=== PATIENT | male | born 1940 | race Caucasian/White ===

== ENCOUNTER 2017-05-22 10:47 | Day surgery (SDC) | payer OTHER ==
[2017-05-22] MEDS ORDERED: fentaNYL 100 MCG/2 ML INJ IVP ONE (10:56)
[2017-05-22] MEDS ORDERED: MIDAZOLAM 2 MG/2 ML VIAL IVP ONE (10:56)
[2017-05-22] MEDS ORDERED: NS 500 ML IV ONE (10:56)
[2017-05-22] MEDS ORDERED: BENZOCAINE UNIT DOSE SPRAY HURRICAINE MM ONE (10:56)
[2017-05-22] MEDS ORDERED: PROPOFOL 200 MG/20 ML VIAL IVP ONE (10:56)
--- NOTE | 2017-05-22 11:14 | CPEKG ---
Heart Rate: 84 RR Interval: 714 QRSD Interval: 92 QT Interval: 396 QTC Interval: 469 QRS [place]: 29 T Wave [place]: 5 EKG Severity - BORDERLINE ECG - EKG Impression: ATRIAL FIBRILLATION EKG Impression: LOW VOLTAGE IN FRONTAL LEADS EKG Impression: CONSIDER POSTERIOR INFARCT Electronically Signed By: Jorge Azar 22-May-2017 12:43:45
[2017-05-22 11:38] LABS: INR 2.09 (0.83-1.16); PROTIME(PATIENT) 23.6 SEC (12.0-15.0)
[2017-05-22 11:39] LABS: APTT 38.9 SEC (23.0-38.0)
[2017-05-22 11:46] LABS: ANION GAP 12 mEq/L (8-16); CALCIUM 9.5 mg/dL (8.5-10.4); CARBON DIOXIDE 25 mEq/l (22-31); CHLORIDE 103 mEq/L (97-110); CREATININE 1.1 mg/dL (0.7-1.3); GLOMERULAR FILTRATION RATE > 60; GLUCOSE 110 mg/dL (70-100); MAGNESIUM 1.8 mg/dL (1.6-2.3); POTASSIUM 4.7 mEq/L (3.5-5.2); SODIUM 140 mEq/L (134-144)
--- NOTE | 2017-05-22 13:17 | PDANEPAE ---
ANE History of Present Illness 77 yo for cv for Afib ANE Past Medical History - Cardiovascular History Hx Hypertension: Yes Hx Arrhythmias: No Hx Chest Pain: No Hx Coronary Artery / Peripheral Vascular Disease: Yes Hx CHF / Valvular Disease: No Hx Palpitations: No - Pulmonary History Hx Asthma/Reactive Airway Disease: No Hx Recent Upper Respiratory Infection: No Hx Oxygen in Use at Home: No Hx Sleep Apnea: No - Endocrine History Hx Diabetes: Yes ANE Review of Systems - Exercise capacity METS (RN): 3 METS ANE Patient History - Allergies Allergies/Adverse Reactions: No Known Allergies Allergy (Verified 05/19/16 18:49) - Home Medications Home medications: home medication list seen and reviewed Home Medications: Atorvastatin Calcium [Lipitor 10 mg (*)] 10 mg PO DAILY20 05/19/16 [Last Taken 07/16/16] Rivaroxaban [Xarelto] 20 mg PO DAILY20 05/19/16 [Last Taken 07/14/16] Timolol 0.5% [TIMOPTIC 0.5% (*)] 1 drops EACHEYE DAILY 05/19/16 [Last Taken ] metFORMIN HCL [Metformin HCl ER] 500 mg PO DAILY20 05/19/16 [Last Taken 07/16/16 ] Metoprolol Succinate Xr [Toprol Xl 25 mg (*)] 25 mg PO DAILY 07/17/16 [Last Taken 07/10/16] Omeprazole [Prilosec 20 mg] 20 mg PO DAILY 07/17/16 [Last Taken 07/16/16] Propafenone HCl Sr [Rythmol Sr 225mg (*)] 225 mg PO Q12 07/17/16 [Last Taken ] - Smoking Hx Smoking Status: Former smoker ANE Labs/Vital Signs - Labs Result Diagrams: 05/22/17 11:15 - Vital Signs Height: 6 ft 0.05 in Weight: 90.7 kg ANE Physical Exam - Airway Neck exam: FROM Mallampati Score: Class 3 Mouth exam: normal dental/mouth exam - Pulmonary Pulmonary: no respiratory distress - Cardiovascular Cardiovascular: regular rate and rhythym - ASA Status ASA Status: III ANE Anesthesia Plan Anesthesia Plan: MAC (IVGA)
[2017-05-22] MEDS ORDERED: PROPOFOL 200 MG/20 ML VIAL ONE (13:54)
--- NOTE | 2017-05-22 13:55 | PDGENHP ---
History & Physical Chief Complaint: AF WITH SYMPTOMS OF FATIGUE History of Present Illness: AFIB Pertinent Past, Social, Family History: NONE FOR THIS PROCEDURE. SP PV ISOLATION FOR AFIB Relevant Physical Exam: S1S2 IRREG. CTA. A/O X 3 Cardiorespiratory Assessment: Symptomatic AFIB. For KAE guided DCCV
--- NOTE | 2017-05-22 14:16 | PDTEE1 ---
KAE Cardioversion Procedure Procedure: Electrical Cardioversion, Transesophageal Echo Indications: Atrial Fibrillation, Cardiomyopathy Consent: Signed and in Chart Anticoagulation: Xarelto Procedural Details: Pads were placed in anterior-posterior position. KAE probe was advanced and standard images obtained. There is no evidence of left atrial or left atrial appendage thrombus. Synchronized cardioversion attempt #1: 200J Synchronized cardioversion attempt #2: 200J Results: Normal sinus rhythm Conclusions: Successful KAE Cardioversion Patient Problems: Problems Problem Status Onset Atrial fibrillation Acute Persistent atrial fibrillation with rapid ventricular response Acute
--- NOTE | 2017-05-22 14:39 | CPEKG ---
Heart Rate: 41 RR Interval: 1463 P-R Interval: 224 QRSD Interval: 100 QT Interval: 496 QTC Interval: 410 [place]: -27 QRS [place]: 39 T Wave [place]: 12 EKG Severity - ABNORMAL ECG - EKG Impression: SINUS BRADYCARDIA EKG Impression: LOW VOLTAGE IN FRONTAL LEADS EKG Impression: PROBABLE POSTERIOR INFARCT Electronically Signed By: Jorge Azar 22-May-2017 14:55:15
--- NOTE | 2017-05-22 14:43 | POSTANESTH ---
Post Anesthetic Evaluation Cardiovascular Status: Normal, Stable Respiratory Status: Normal, Stable Level of Consciousness/Mental Status: Can Participate in Eval Nausea/Vomiting Control: Adequate, Prn Tx Ordered Complications Possibly Related to Anesthesia: None Noted
== END 2017-05-22 15:31 | disposition home or self-care (01) ==
LOC: FCATH 10:47
PROVIDERS: ATTEND Internal Medicine Cardiovascular Disease
PROC: 5A2204Z Restoration of Cardiac Rhythm, Single (ICD-10-PCS; principal; 2017-05-22)
PROC: B245ZZ4 Ultrasonography of Left Heart, Transesophageal (ICD-10-PCS; principal; 2017-05-22)
CPT/HCPCS: J2704

== ENCOUNTER 2017-07-02 10:30 | Day surgery (SDC) | payer OTHER ==
[2017-07-02] MEDS ORDERED: MIDAZOLAM 2 MG/2 ML VIAL IVP ONE (10:34)
[2017-07-02] MEDS ORDERED: NS 500 ML IV ONE (10:34)
[2017-07-02] MEDS ORDERED: ATROPINE SULFATE 1 MG/10 ML SYR IVP ONE (10:34)
[2017-07-02] MEDS ORDERED: fentaNYL 100 MCG/2 ML INJ IVP ONE (10:34)
[2017-07-02] MEDS ORDERED: BENZOCAINE UNIT DOSE SPRAY HURRICAINE MM ONE (10:34)
--- NOTE | 2017-07-02 10:49 | CPEKG ---
Heart Rate: 79 RR Interval: 759 QRSD Interval: 96 QT Interval: 392 QTC Interval: 450 QRS [place]: 42 T Wave [place]: -13 EKG Severity - ABNORMAL ECG - EKG Impression: ATRIAL FIBRILLATION EKG Impression: LOW VOLTAGE IN FRONTAL LEADS EKG Impression: PROBABLE POSTERIOR INFARCT EKG Impression: BORDERLINE T ABNORMALITIES, INFERIOR LEADS Electronically Signed By: Eduardo Bedoya 02-Jul-2017 17:55:58
[2017-07-02] MEDS ORDERED: PROPOFOL 200 MG/20 ML VIAL ONE (11:28)
[2017-07-02] MEDS ORDERED: LIDOCAINE 2% 5 ML SDV ONE (11:28)
[2017-07-02 11:29] LABS: ANION GAP 10 mEq/L (8-16); CALCIUM 9.4 mg/dL (8.5-10.4); CARBON DIOXIDE 26 mEq/l (22-31); CHLORIDE 103 mEq/L (97-110); CREATININE 1.2 mg/dL (0.7-1.3); GLOMERULAR FILTRATION RATE 58; GLUCOSE 116 mg/dL (70-100); MAGNESIUM 1.7 mg/dL (1.6-2.3); POTASSIUM 4.2 mEq/L (3.5-5.2); SODIUM 139 mEq/L (134-144)
[2017-07-02 11:33] LABS: INR 2.25 (0.83-1.16); PROTIME(PATIENT) 25.1 SEC (12.0-15.0)
--- NOTE | 2017-07-02 11:34 | PDANEPAE ---
ANE History of Present Illness 77 yo male with AF. ANE Past Medical History - Cardiovascular History Hx Hypertension: Yes Hx Arrhythmias: No Hx Chest Pain: No Hx Coronary Artery / Peripheral Vascular Disease: Yes Hx CHF / Valvular Disease: No Hx Palpitations: No - Pulmonary History Hx COPD: No Hx Asthma/Reactive Airway Disease: No Hx Recent Upper Respiratory Infection: No Hx Oxygen in Use at Home: No Hx Sleep Apnea: No - Endocrine History Hx Diabetes: Yes - GI History GERD: no ANE Review of Systems Review of Systems: No URI/fever x2 weeks - Systems Cardiac: Reports: palpitations Respiratory: Reports: shortness of breath ANE Patient History - Allergies Allergies/Adverse Reactions: No Known Allergies Allergy (Verified 05/19/16 18:49) - Home Medications Home medications: home medication list seen and reviewed Home Medications: Atorvastatin Calcium [Lipitor 10 mg (*)] 10 mg PO DAILY20 05/19/16 [Last Taken 07/16/16] Rivaroxaban [Xarelto] 20 mg PO DAILY20 05/19/16 [Last Taken 07/14/16] Timolol 0.5% [TIMOPTIC 0.5% (*)] 1 drops EACHEYE DAILY 05/19/16 [Last Taken ] metFORMIN HCL [Metformin HCl ER] 500 mg PO DAILY20 05/19/16 [Last Taken 07/16/16 ] Propafenone HCl Sr [Rythmol Sr 225mg (*)] 225 mg PO Q12 07/17/16 [Last Taken ] Ascorbic Acid [Vitamin C 500 mg (*)] 500 mg PO BID 07/01/17 [Last Taken Unknown] Cholecalciferol Vit D3 [Vitamin D3 2000 units tab (OTC)] 2,000 units PO DAILY [Last Taken Unknown] Metoprolol Succinate Xr [Toprol Xl 50 mg (*)] 50 mg PO DAILY@199907/01/17 [ Last Taken Unknown] - NPO status NPO Status: no food or drink >8 hours - Anes Hx Anes Hx: no prior problems - Smoking Hx Smoking Status: Former smoker ANE Labs/Vital Signs - Labs Result Diagrams: 07/02/17 10:55 - Vital Signs Vital Signs: reviewed preoperatively; see RN documention for details Height: 182.88 cm Weight: 89.358 kg ANE Physical Exam - Airway Neck exam: FROM Mallampati Score: Class 2 Mouth exam: normal dental/mouth exam - Pulmonary Pulmonary: clear to auscultation - Cardiovascular Cardiovascular: irregularly irregular - ASA Status ASA Status: III ANE Anesthesia Plan Anesthesia Plan: GA with mask Total IV Anesthesia: Yes
[2017-07-02 11:36] LABS: APTT 38.1 SEC (23.0-38.0)
--- NOTE | 2017-07-02 11:40 | PDHPUP ---
History & Physical Update H&P update statement: This history and physical update is based on an assessment of the patient which was completed after admission or registration (within 24 hours), but prior to the surgery/procedure. H&P update: H&P reviewed & patient examined, no change in patient's condition since H&P completed
--- NOTE | 2017-07-02 11:51 | PDCARD ---
Cardioversion Procedure Procedure: electrical cardioversion Indications: atrial fibrillation Consent: signed and in chart Anticoagulation: xarelto Procedural Details: Pads were placed in anterior-posterior position. Synchronized cardioversion attempt #1: 200J Results: normal sinus rhythm Conclusions: successful cardioversion Patient Problems: Problems Problem Status Onset Atrial fibrillation Acute Persistent atrial fibrillation with rapid ventricular response Acute
--- NOTE | 2017-07-02 11:53 | CPEKG ---
Heart Rate: 47 RR Interval: 1277 P-R Interval: 228 QRSD Interval: 98 QT Interval: 456 QTC Interval: 404 P [place]: -28 QRS [place]: 26 T Wave [place]: -16 EKG Severity - ABNORMAL ECG - EKG Impression: SINUS BRADYCARDIA EKG Impression: PROBABLE POSTERIOR INFARCT EKG Impression: BORDERLINE T ABNORMALITIES, INFERIOR LEADS Electronically Signed By: Eduardo Bedoya 02-Jul-2017 17:55:53
== END 2017-07-02 13:29 | disposition home or self-care (01) ==
LOC: FCATH 10:30
PROVIDERS: ATTEND Internal Medicine Cardiovascular Disease
PROC: 5A2204Z Restoration of Cardiac Rhythm, Single (ICD-10-PCS; principal; 2017-07-02)
DX: I48.0 Paroxysmal atrial fibrillation (principal); I34.0 Nonrheumatic mitral (valve) insufficiency; I10 Essential (primary) hypertension; E11.9 Type 2 diabetes mellitus without complications; Z87.891 Personal history of nicotine dependence
CPT/HCPCS: J2704

== ENCOUNTER → 2017-07-17 | Outpatient (CLI) | payer OTHER | LOC: CIMAGING 11:39 | PROVIDERS: ATTEND Internal Medicine Pulmonary Disease | DX: R91.1 Solitary pulmonary nodule (principal); M48.54XA Collapsed vertebra, not elsewhere classified, thoracic region, initial encounter for fracture | CPT/HCPCS: 71250-PO ==

== ENCOUNTER 2017-10-02 08:46 | Inpatient (IN) | payer OTHER ==
[2017-10-02] MEDS ORDERED: DIAZEPAM 5 MG TAB PO ONE (08:50)
[2017-10-02] MEDS ORDERED: NS 1,000 ML IV ONE (08:50)
[2017-10-02] MEDS ORDERED: diphenhydrAMINE 25 MG CAP PO ONE ×2 (08:50→09:57)
[2017-10-02] MEDS ORDERED: FAMOTIDINE 20 MG TAB PO ONE (08:50)
[2017-10-02] MEDS ORDERED: ASPIRIN EC 325 MG TAB PO ONE (08:50)
--- NOTE | 2017-10-02 09:10 | CPEKG ---
Heart Rate: 95 RR Interval: 632 QRSD Interval: 86 QT Interval: 372 QTC Interval: 468 QRS [place]: 46 T Wave [place]: 8 EKG Severity - ABNORMAL ECG - EKG Impression: ATRIAL FIBRILLATION EKG Impression: ATRIAL FIBRILLATION IS NEW IN COMPARISON TO PRIOR ECG Electronically Signed By: Omi Kothari 02-Oct-2017 14:35:34
[2017-10-02 09:30] LABS: PLATELET COUNT 320 10^3/uL (150-400)
[2017-10-02 09:40] LABS: INR 1.05 (0.83-1.16); PROTIME(PATIENT) 13.9 SEC (12.0-15.0)
[2017-10-02] MEDS ORDERED: DIAZEPAM 5 MG TAB ONE (09:57)
[2017-10-02] MEDS ORDERED: FAMOTIDINE 20 MG TAB ONE (09:57)
[2017-10-02] MEDS ORDERED: LIDOCAINE 1% 300 MG/30 ML SDV ONE (10:19)
[2017-10-02] MEDS ORDERED: fentaNYL 100 MCG/2 ML INJ ONE (10:19)
[2017-10-02] MEDS ORDERED: MIDAZOLAM 2 MG/2 ML VIAL ONE (10:19)
[2017-10-02] MEDS ORDERED: IOPAMIDOL (ISOVUE-370) 150 ML BTL IV ONE (10:20)
[2017-10-02] MEDS ORDERED: VERAPAMIL 5 MG/2 ML VIAL ONE (10:43)
[2017-10-02] MEDS ORDERED: HEPARIN 10,000 UNIT/10 ML MDV (1,000 UNIT/ML) ONE (10:43)
--- NOTE | 2017-10-02 10:43 | PDPROPOC ---
Sedation Plan of Care Sedation Plan of Care: vital signs stable, mental status noted, patient educated of risks, benefits, alternatives, patient can tolerate sedation ASA Classification: ASA 3 Planned drugs: fentanyl, midazolam, other (etomidate) Mallampati Score: Class 3 Mallampati Reference Image: Patient passed 3-3-2 rule?: Yes
--- NOTE | 2017-10-02 10:45 | PDHPUP ---
History & Physical Update H&P update statement: This history and physical update is based on an assessment of the patient which was completed after admission or registration (within 24 hours), but prior to the surgery/procedure. H&P update: H&P reviewed & patient examined, no change in patient's condition since H&P completed (patient needs R and left cath prior to MV surgery and [place] Maze IV)
--- NOTE | 2017-10-02 11:40 | PDDXCAT ---
Diagnostic Cath Note - . Date: 10/02/17 [employer] Teacher: Monica Indication: other (Diagnostic cath for worsening MR, patient has planned MV surgery tomorrow with [place] Maze IV) - Procedure Access: right wrist Procedure: left heart catheterization, right heart catheterization - Materials Left Heart Cath size: 5F Left Heart Cath materials: standard multipack (JL4, JR4, pigtail) Right Heart Cath size: 5F Right Heart Cath materials: PWP catheter - Findings-Left Heart Catheterization LM: LM is 4 mm in size relativeley diffuse disease, calcification on flouroscopy consistent with atherosclerosis. It is non-flow limiting. It bifurcates into an LAD and small vestigial circumflex. 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 LAD: It is 3mm in size proximally and gives rise to 2 important diagonal blood vessels. There are weak left to left collaterals to a high lateral branch which must be proximally occluded. The same findings were identified on cath 12/02/15. This appears unchanged. The LAD diagonal system distally is quite small. 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 RCA: RCA is dominant. It is 3.5mm in size. 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 DEE III flow is present. No flow limiting obstruction is identified. EDP: 17mmHg. LVEF: 40% with severe mitral regurgitation. Wall motion: No wall motion abnormalites. - Findings-Right Heart Catheterization RA: Pressure: 13/16 mean: 13mmHg RV: Pressure 51/7. End diastolic pressure is 10 mmHg. PA: PA: 72% saturation PAOP: 20mmHg with large V waves consistent with severe MR. AO: 98% saturation CO: 5.5 L/min CI: 2.6 L/min/m2 Complications: None. Estimated blood loss: <50ml Closure method: TR Band Assessment: RCA is dominant. It is 3.5mm in size. 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 DEE III flow is present. No flow limiting obstruction is identified. There are weak left to left collaterals to a high lateral branch which must be proximally occluded. The same findings were identified on cath 12/02/15. This appears unchanged. There are no vessels amenable to coronary bypass. The LV function has declined and mitral regurgitation has greatly increased from prior cath 11/2015. Plan: The patient is scheduled to have mitral valve repair versus replacement and a [place] Maze IV procedure with left atrial appendage ligation tomorrow by Dr. Chen. Intervention: None. Patient Problems: Problems Problem Status Onset Atrial fibrillation Acute Persistent atrial fibrillation with rapid ventricular response Acute
[2017-10-02] MEDS ORDERED: ONDANSETRON 4 MG/2 ML VIAL IVP PRN (12:08)
[2017-10-02] MEDS ORDERED: ATROPINE SULFATE 1 MG/10 ML SYR IVP PRN (12:08)
[2017-10-02] MEDS ORDERED: OXYCODONE/APAP 5/325 TAB PO PRN (12:08)
[2017-10-02] MEDS ORDERED: HYDROCODONE/APAP 5/325 TAB PO PRN (12:08)
[2017-10-02] MEDS ORDERED: NITROGLYCERIN 0.4 MG BTL SL PRN (12:08)
--- NOTE | 2017-10-02 13:49 | PDGENHP ---
History and Physical - Chief Complaint symptomatic MR, secondary TR, LSPAF - History of Present Illness 77M with known severe MR, secondary TR, and LSPAF admitted in advance of open- heart surgery for risk stratification. Pt is s/p LHC with Dr. Anderson today which revealed non-obstructive CAD. Pt states he continues to experience exertional limitations with associated SOB and is often aware of chest palpitations. He states he has spinal osteoarthritis which also limites his mobility. He denies CP or LE edema. History Information - Allergies/Home Medication List Allergies/Adverse Reactions: No Known Allergies Allergy (Verified 05/19/16 18:49) Home Medications: Atorvastatin Calcium [Lipitor 10 mg (*)] 10 mg PO DAILY18 05/19/16 [Last Taken 10/01/17 21:00] Rivaroxaban [Xarelto] 20 mg PO DAILY18 05/19/16 [Last Taken 09/29/17] Timolol 0.5% [TIMOPTIC 0.5% (*)] 1 drops EACHEYE DAILY 05/19/16 [Last Taken 06/11] Metoprolol Succinate Xr [Toprol Xl 50 mg (*)] 50 mg PO DAILY18 07/01/17 [Last Taken 10/01/17 21:00] Cholecalciferol Vit D3 [Vitamin D3 (*)] 1,000 units PO DAILY 09/26/17 [Last Taken Unknown] Herbals/Supplements -Info Only 1 ea PO DAILY 09/26/17 [Last Taken Unknown] metFORMIN SR [Glucophage XR 500 mg (*)] 500 mg PO DAILY18 09/26/17 [Last Taken 09/29/17] oxyCODONE IR [Oxycodone Ir (*)] 5 mg PO DAILY PRN 09/26/17 [Last Taken 09/24/17] I have personally reviewed and updated: medical history, social history, surgical history - Past Medical History atrial fibrillation, CHF, diabetes type 2, hypertension, hyperlipidemia, osteoporosis - Surgical History Reports: appendectomy - Social History Smoking Status: Former smoker Review of Systems Review of Systems: ROS: 10pt was reviewed & negative except for what was stated in HPI & below Physical Exam Physical Exam: Constitutional: no apparent distress, appears nourished, not in pain Eyes: anicteric sclera Ears, Nose, Mouth, Throat: moist mucous membranes, hearing normal Cardiovascular: systolic murmur, irregularly irregular Respiratory: no respiratory distress, no rales or rhonchi, clear to auscultation Gastrointestinal: soft, non-tender abdomen Skin: warm, normal color Musculoskeletal: full muscle strength Neurologic: AAOx3, sensation intact bilaterally Psychiatric: interacting appropriately, not anxious, not encephalopathic, thought process linear Lab Data & Imaging Review 10/02/17 09:18 10/02/17 09:18 WBC 7.28 10^3/uL (3.80-9.50) 10/02/17 09:18 RBC 3.77 10^6/uL (4.40-6.38) L 10/02/17 09:18 Hgb 13.5 g/dL (13.7-17.5) L 10/02/17:18 Hct 38.6 % (40.0-51.0) L 10/02/17 09:18 MCV 102.4 fL (81.5-99.8) H 10/02/17 09:18 MCH 35.8 pg (27.9-34.1) H 10/02/17 09:18 MCHC 35.0 g/dL (32.4-36.7) 10/02/17 09:18 RDW 15.5 % (11.5-15.2) H 10/02/17:18 Plt Count 320 10^3/uL (150-400) 10/02/17 09:18 MPV 9.5 fL (8.7-11.7) 10/02/17 09:18 Neut % (Auto) 68.4 % (39.3-74.2) 10/02/17 09:18 Lymph % (Auto) 19.5 % (15.0-45.0) 10/02/17 09:18 [place] % (Auto) 8.2 % (4.5-13.0) 10/02/17:18 Eos % (Auto) 2.6 % (0.6-7.6) 10/02/17 09:18 Baso % (Auto) 0.8 % (0.3-1.7) 10/02/17 09:18 Nucleat RBC Rel Count 0.3 % (0.0-0.2) H 10/02/17 09:18 Absolute Neuts (auto) 4.97 10^3/uL (1.70-6.50) 10/02/17 09:18 Absolute Lymphs (auto) 1.42 10^3/uL (1.00-3.00) 10/02/17 09:18 Absolute Monos (auto) 0.60 10^3/uL (0.30-0.80) 10/02/17 09:18 Absolute Eos (auto) 0.19 10^3/uL (0.03-0.40) 10/02/17 09:18 Absolute Basos (auto) 0.06 10^3/uL (0.02-0.10) 10/02/17 09:18 Absolute Nucleated RBC 0.02 10^3/uL (0-0.01) H 10/02/17 09:18 Immature Gran % 0.5 % (0.0-1.1) 10/02/17:18 Immature Gran # 0.04 10^3/uL (0.00-0.10) 10/02/17 09:18 PT 13.9 SEC (12.0-15.0) 10/02/17 09:18 INR 1.05 (0.83-1.16) 10/02/17 09:18 Sodium 142 mEq/L (134-144) 10/02/17 09:18 Potassium 4.4 mEq/L (3.5-5.2) 10/02/17 09:18 Chloride 106 mEq/L (97-110) 10/02/17 09:18 Carbon Dioxide 26 mEq/l (22-31) 10/02/17 09:18 Anion Gap 10 mEq/L (8-16) 10/02/17 09:18 BUN 19 mg/dL (7-23) 10/02/17 09:18 Creatinine 1.1 mg/dL (0.7-1.3) 10/02/17 09:18 Estimated GFR > 60 10/02/17:18 Glucose 111 mg/dL (70-100) H 10/02/17 09:18 Hemoglobin A1c 5.7 % (4.0-6.0) 10/02/17 09:18 Estim Average Glucose 117 mg/dL (68-126) 10/02/17 09:18 Calcium 9.8 mg/dL (8.5-10.4) 10/02/17 09:18 Magnesium 1.9 mg/dL (1.6-2.3) 10/02/17 09:18 Triglycerides 90 mg/dL (40-150) 10/02/17 09:18 Cholesterol 133 mg/dL (140-220) L 10/02/17 09:18 Cholesterol Risk Factr 0.4 (0.2-1.0) 10/02/17 09:18 LDL Cholesterol, Calc 50 mg/dL (80-100) L 10/02/17 09:18 LDL Risk Factor 0.4 (0.2-1.0) 10/02/17 09:18 VLDL Cholesterol 18 mg/dL (8-25) 10/02/17 09:18 Non-HDL Cholesterol 68 mg/dL (90-129) L 10/02/17 09:18 HDL Cholesterol 65 mg/dL (40-65) 10/02/17 09:18 LDL/HDL Ratio 0.77 RATIO (1.00-3.64) L 10/02/17 09:18 Cholesterol/HDL Ratio 2.05 RATIO (1.00-4.97) 10/02/17 09:18 Patient ABO/Rh AB NEGATIVE 10/02/17 09:18 Antibody Screen POSITIVE 10/02/17 09:18 Antibody Identification Warm Auto Agglutinin 10/02/17 09:18 TIMOTHY, Polyspecific TNP 10/02/17 09:18 Enhanced Crossmatch See Detail 10/02/17 09:18 Bld Prod Verbal Order YES 10/02/17 09:18 Imaging Review: Carotids: No hemodynamically significant ICA stenosis Visualized and Interpreted Chest x-ray results: Yes Chest X-Ray results: no infiltrate, other (elevated left hemidiaphragm) Visualized and Interpreted EKG results: Yes EKG Interpretation: Positive for: other (AF) Assessment & Plan Assessment: 77M with LSPAF, MR, TR Plan: [place]-Maze 4, MV repair vs replacement, TV repair 10/03/[address] Chen
[2017-10-02] MEDS ORDERED: D50W 25 GM/50 ML SYR IVP PRN (15:06)
[2017-10-02] MEDS ORDERED: BISACODYL 10 MG SUPP PR PRN (16:04)
[2017-10-02] MEDS ORDERED: POLYETHYLENE GLYCOL 3350 17 GM PKT PO PRN (16:04)
[2017-10-02] MEDS ORDERED: MAGNESIUM HYDROXIDE 30 ML UDCUP PO PRN (16:04)
[2017-10-02] MEDS ORDERED: LACTULOSE 20 GM/30 ML UDCUP PO PRN (16:04)
[2017-10-02] MEDS ORDERED: ATORVASTATIN CALCIUM 10 MG TAB PO SCH (18:00)
[2017-10-02] MEDS ORDERED: METOPROLOL SUCCINATE XR 50 MG TAB PO SCH (18:00)
[2017-10-02] MEDS: INSULIN LISPRO 100 UNIT/ML SC SCH (18:47)
[2017-10-02] MEDS: SENNOSIDES/DOCUSATE SODIUM TAB PO SCH (20:51)
[2017-10-02] MEDS ORDERED: CHLORHEXIDINE GLUC HIBICLENS 118 ML BTL TP SCH (21:00)
[2017-10-03] MEDS ORDERED: MUPIROCIN 2% 22 GM OINT NS ONE (06:00)
[2017-10-03] MEDS ORDERED: CITRATE DEXTROSE SOLN 500 ML BAG MISC ONE (06:00)
[2017-10-03] MEDS ORDERED: PHENYLEPHRINE HCL 50 MG in NS 250 ML IV ONE (06:00)
[2017-10-03] MEDS ORDERED: niCARdipine/NACL 200 ML IV SCH (06:00)
[2017-10-03] MEDS ORDERED: SODIUM BICARBONATE 20 MEQ, LIDOCAINE 1% 10 ML in NORMOSOL-R 1,000 ML MISC ONE (06:00)
[2017-10-03] MEDS ORDERED: ceFAZolin 2 GM/SWFI 2 GM/20 ML SYR IVP ONE (06:00)
[2017-10-03] MEDS ORDERED: INSULIN REGULAR HUMAN 100 UNIT in NS 100 ML IV ONE (06:00)
[2017-10-03] MEDS ORDERED: MANNITOL 25% 12.5 GM/50 ML VIAL IVP ONE (06:00)
[2017-10-03] MEDS ORDERED: TRANEXAMIC ACID 1,000 MG in NS 100 ML IV ONE (06:00)
[2017-10-03] MEDS ORDERED: NOREPINEPHRINE BITARTRATE 16 MG in NS 250 ML IV ONE (06:00)
[2017-10-03] MEDS: TIMOLOL 0.5% 15 ML OPHT.BTL EACHEYE SCH (06:37)
[2017-10-03] MEDS ORDERED: CALCIUM CHLORIDE 1 GM/10 ML INJ ONE (06:45)
[2017-10-03] MEDS ORDERED: NA BICARBONATE 50 MEQ/50 ML VIAL ONE (06:45)
[2017-10-03] MEDS ORDERED: LIDOCAINE 2% 100 MG/5 ML SYR ONE (06:45)
[2017-10-03] MEDS ORDERED: ALBUMIN 5% 250 ML BOTTLE IV ONE (06:45)
[2017-10-03] MEDS ORDERED: MILRINONE/DEXTROSE/100 ML BAG IV ONE (06:45)
[2017-10-03] MEDS ORDERED: PROTAMINE SULFATE 50 MG/5 ML VIAL IVP ONE (06:45)
[2017-10-03] MEDS ORDERED: MAGNESIUM SULFATE 1 GM/2 ML VIAL ONE (06:46)
[2017-10-03] MEDS ORDERED: ceFAZolin 1 GM VIAL ONE (06:46)
[2017-10-03] MEDS ORDERED: AMIODARONE HCL 150 MG/3 ML VIAL ONE (06:46)
[2017-10-03] MEDS ORDERED: ADENOSINE 6 MG/2 ML VIAL ONE (06:46)
[2017-10-03] MEDS ORDERED: niCARdipine/NACL/200 ML BAG IV ONE (06:46)
[2017-10-03] MEDS ORDERED: CITRATE DEXTROSE SOLN 500 ML BAG ONE (06:46)
[2017-10-03] MEDS ORDERED: methylPREDNISolone SOD SUCC 1 GM/8 ML VIAL ONE (06:46)
[2017-10-03] MEDS ORDERED: DOPamine/DEXTROSE/250 ML BAG IV ONE (06:46)
[2017-10-03] MEDS ORDERED: HEPARIN 10,000 UNIT/10 ML MDV (1,000 UNIT/ML) ONE (06:46)
[2017-10-03] MEDS ORDERED: PROPOFOL 200 MG/20 ML VIAL ONE (06:54)
[2017-10-03] MEDS ORDERED: fentaNYL 250 MCG/5 ML INJ ONE ×2 (06:54)
[2017-10-03] MEDS ORDERED: LR 1,000 ML IV ONE (07:09)
[2017-10-03] MEDS ORDERED: MIDAZOLAM 2 MG/2 ML VIAL ONE (07:30)
[2017-10-03] MEDS ORDERED: MIDAZOLAM 2 MG/2 ML VIAL IVP ONE (07:37)
--- NOTE | 2017-10-03 07:37 | PDANEPAE ---
ANE History of Present Illness [id number] ANE Past Medical History - Cardiovascular History Hx Hypertension: Yes Hx Arrhythmias: Yes Hx Chest Pain: No Hx Coronary Artery / Peripheral Vascular Disease: Yes Hx CHF / Valvular Disease: Yes Hx Palpitations: No - Pulmonary History Hx COPD: No Hx Asthma/Reactive Airway Disease: No Hx Recent Upper Respiratory Infection: No Hx Oxygen in Use at Home: No Hx Sleep Apnea: No Sleep Apnea Screening Result - Last Documented: Positive - Neurologic History Hx Cerebrovascular Accident: No Hx Seizures: No Hx Dementia: No - Endocrine History Hx Diabetes: Yes Hypothyroid: No Hyperthyroid: No - Renal History Hx Renal Disorders: No - Liver History Hx Hepatic Disorders: No - Neurological & Psychiatric Hx Hx Neurological and Psychiatric Disorders: No - Chronic Pain History Chronic Pain: No ANE Review of Systems Review of Systems: - Exercise capacity METS (RN): 4 METS ANE Patient History - Allergies Allergies/Adverse Reactions: No Known Allergies Allergy (Verified 05/19/16 18:49) - Home Medications Home Medications: Atorvastatin Calcium [Lipitor 10 mg (*)] 10 mg PO DAILY18 05/19/16 [Last Taken 10/01/17 21:00] Rivaroxaban [Xarelto] 20 mg PO DAILY18 05/19/16 [Last Taken 09/29/17] Timolol 0.5% [TIMOPTIC 0.5% (*)] 1 drops EACHEYE DAILY 05/19/16 [Last Taken 06/11] Metoprolol Succinate Xr [Toprol Xl 50 mg (*)] 50 mg PO DAILY18 07/01/17 [Last Taken 10/01/17 21:00] Cholecalciferol Vit D3 [Vitamin D3 (*)] 1,000 units PO DAILY 09/26/17 [Last Taken Unknown] Herbals/Supplements -Info Only 1 ea PO DAILY 09/26/17 [Last Taken Unknown] metFORMIN SR [Glucophage XR 500 mg (*)] 500 mg PO DAILY18 09/26/17 [Last Taken 09/29/17] oxyCODONE IR [Oxycodone Ir (*)] 5 mg PO DAILY PRN 09/26/17 [Last Taken 09/24/17] - NPO status NPO Status: no food or drink >8 hours NPO Since - Liquids (Date): 10/03/17 NPO Since - Liquids (Time): 00:00 NPO Since - Solids (Date): 10/03/17 NPO Since - Solids (Time): 00:00 - Smoking Hx Smoking Status: Former smoker ANE Labs/Vital Signs - Labs Result Diagrams: 10/02/17 09:18 10/02/17 09:18 - Vital Signs Blood Pressure: 126/79 Heart Rate: 65 Respiratory Rate: 18 O2 Sat (%): 97 Height: 180 cm Weight: 92.4 kg ANE Physical Exam - Airway Mallampati Score: Class 2 Mouth exam: normal dental/mouth exam - Pulmonary Pulmonary: no respiratory distress - Cardiovascular Cardiovascular: irregularly irregular - ASA Status ASA Status: III ANE Anesthesia Plan Anesthesia Plan: general endotracheal anesthesia Lines/Monitors: arterial line, central line, KAE
[2017-10-03] MEDS ORDERED: MAGNESIUM SULF 2 GM/WATER 50 ML BAG IV ONE (10:17)
[2017-10-03] MEDS ORDERED: MINERAL OIL 10 ML VIAL ONE (11:02)
[2017-10-03] MEDS ORDERED: DEXMEDETOMIDINE/NS 4MCG/ML 50 ML BTL IV ONE (12:31)
[2017-10-03] MEDS ORDERED: ACETAMINOPHEN 325 MG TAB PO PRN (12:36)
[2017-10-03] MEDS ORDERED: SODIUM CL NASAL 45 ML BTL EACHNARE PRN (12:36)
[2017-10-03] MEDS ORDERED: ONDANSETRON 4 MG/2 ML VIAL IVP PRN (12:36)
[2017-10-03] MEDS ORDERED: MEPERIDINE 25 MG/ML SYR IVP PRN (12:36)
[2017-10-03] MEDS ORDERED: MAGNESIUM SULF 2 GM/WATER 50 ML IV ONE (12:36)
[2017-10-03] MEDS ORDERED: PANTOPRAZOLE SODIUM 40 MG VIAL IVP ONE (12:36)
[2017-10-03] MEDS ORDERED: CEPACOL LOZENGE PO PRN (12:36)
[2017-10-03] MEDS ORDERED: METOCLOPRAMIDE 10 MG/2 ML VIAL IVP PRN (12:36)
[2017-10-03] MEDS ORDERED: D50W 25 GM/50 ML SYR IVP PRN (12:36)
[2017-10-03] MEDS ORDERED: fentaNYL 100 MCG/2 ML INJ IVP PRN (12:36)
[2017-10-03] MEDS ORDERED: ONDANSETRON DISINTEGRATING 4 MG TAB PO PRN (12:36)
[2017-10-03] MEDS ORDERED: ACETAMINOPHEN 650 MG SUPP PR PRN (12:36)
[2017-10-03] MEDS ORDERED: NS 1,000 ML IV SCH (12:45)
[2017-10-03] MEDS ORDERED: NALOXONE HCL 0.4 MG/ML INJ IVP PRN (12:58)
--- NOTE | 2017-10-03 12:58 | ASMTCASEMG ---
Living Arrangements What is your living Answers: With Spouse arrangement? Who do you live with? Type Of Residence What kind of residence do Answers: House you live in? Discharge Plan Comments Coordination Status Comments Notes: Patient is a 77yo male who was admitted for an MV repir vs. replacement with Dr. Chen. OT/PT have been ordered as well as cardiac rehab. Awaiting therapies evals to determine d/c needs. CM will follow. Date Signed: 10/03/2017 12:57 PM Electronically Signed By:Kaylee Sheffield LCSW
--- NOTE | 2017-10-03 12:59 | POSTANESTH ---
Post Anesthetic Evaluation Cardiovascular Status: Other, See Comment (stable on drips) Respiratory Status: Other, See Comment (stable on vent) Level of Consciousness/Mental Status: Unconscious (sedated) Pain Control: Adequate, Prn Tx Ordered Nausea/Vomiting Control: Adequate, Prn Tx Ordered Complications Possibly Related to Anesthesia: None Noted
[2017-10-03] MEDS ORDERED: INSULIN REGULAR HUMAN 100 UNIT in NS 100 ML IV SCH (13:00)
[2017-10-03] MEDS: SENNOSIDES/DOCUSATE SODIUM TAB PO SCH ×2 (13:12→20:10)
[2017-10-03] MEDS ORDERED: NOREPINEPHRINE BITARTRATE 16 MG in NS 250 ML IV SCH (13:30)
[2017-10-03] MEDS: ALBUMIN 5% 250 ML IV PRN ×2 (13:30→14:07)
--- NOTE | 2017-10-03 13:49 | CPEKG ---
Heart Rate: 83 RR Interval: 723 P-R Interval: 151 QRSD Interval: 94 QT Interval: 396 QTC Interval: 466 P [place]: 0 QRS [place]: 50 T Wave [place]: 79 EKG Severity - BORDERLINE ECG - EKG Impression: SINUS RHYTHM EKG Impression: LOW VOLTAGE THROUGHOUT Electronically Signed By: Den Rodriguez 03-Oct-2017 16:20:32
[2017-10-03] MEDS: ceFAZolin 2 GM/DEXTROSE 100 ML IV SCH ×2 (14:14→22:37)
[2017-10-03] MEDS: MILRINONE/DEXTROSE 100 ML IV SCH ×3 (15:17→23:59)
[2017-10-03] MEDS: POTASSIUM Cl (KCl) 50 ML IV PRN ×3 (15:23→18:20)
[2017-10-03] MEDS ORDERED: ALBUMIN 5% 250 ML IV ONE (16:00)
--- NOTE | 2017-10-03 17:24 | CPEKG ---
Heart Rate: 39 RR Interval: 1538 QRSD Interval: 90 QT Interval: 420 QTC Interval: 339 QRS [place]: 24 T Wave [place]: 46 EKG Severity - ABNORMAL ECG - EKG Impression: A paced , frequent PAC, intermittent atrial capture Electronically Signed By: Eduardo Bedoya 04-Oct-2017 07:28:44
[2017-10-03] MEDS: INSULIN LISPRO 100 UNIT/ML SC SCH (18:33)
--- NOTE | 2017-10-03 19:07 | GOP ---
[f rep st] OPERATIVE REPORT DATE OF OPERATION: 10/03/2017 SURGEON: Zenon Chen DO REFUND CLERK: Xavier Lee PA-C. ANESTHESIOLOGIST: Zachariah De La Torre MD. PREOPERATIVE DIAGNOSIS: Congestive heart failure, class 3, with dilated cardiomyopathy secondary to severe mitral insufficiency secondary to tricuspid insufficiency and longstanding persistent atrial f ibrillation. POSTOPERATIVE DIAGNOSIS: Congestive heart failure, class 3, with dilated cardiomyopathy secondary to severe mitral insufficiency secondary to tricuspid insufficiency and longstanding persistent atrial fibrillation. PROCEDURE PERFORMED: 1. Chordal sparing mitral valve replacement with #29 magna bioprosthesis. 2. Tricuspid valve annuloplasty with a #30 Callaway annuloplasty ring. 3. Left and right-sided [place] Maze 4 with testing utilizing radiofrequency and cryoablation. FINDINGS: Patient presented with symptomatic mitral insufficiency with secondary pulmonary hypertens ion and tricuspid insufficiency. He has a history of several years of atrial fibrillation, unresponsi ve to medical therapy. He was consented, brought to the operating room, intubated. Monitoring lines w ere placed. He was prepped and draped in sterile classical fashion. Transesophageal echo was placed, confirmed severe central mitral insufficiency with chamber enlargement and an ejection fraction of ar ound 40%. His coronary anatomy was without obstruction and was reviewed prior to the maze procedure. He was heparinized, cannulated in the ascending aorta and bicaval cannulas. The tapes were also secur ed. We then resected the fat from the interatrial groove and [place] groove in order to do proper t esting and ablation on the right side. Entrance and exit block were absent on the right and left side . After cardioverting the patient to normal sinus rhythm, we were able to pace from both sides, as we ll as sense atrial activity. I then performed radiofrequency ablation to both antrum up 10 lesion set s with durations less than 10 seconds. We then confirmed an entrance and exit block in both pulmonary veins, superior, middle and inferiorly. We then arrested the heart with antegrade cardioplegia, open ed the tip of the left atrial appendage which was free of thrombus on echo. We then placed a radiofre quency bipolar ablation device across the Coumadin ridge into the left superior pulmonary vein transe cting the previous . Multiple lesion sets were performed. We then placed a 40 mm AtriClip across the base of the appendage. I then marked the terminus of the left and right coronary systems o n the coronary sinus with methylene blue for later ablation. We then opened the left atrium through t he right superior pulmonary vein, performed the floor and roof lesions with radiofrequency ablation b eing certain to cross the antrum lesions. We then cryo ablated the coronary sinus and identified the ice ball inside the left atrium. This was marked. We then performed a 3-minute ablation across the mi tral isthmus overlying the previous coronary sinus lesion sets for 3 minutes. We then evaluated the m itral valve. There were ruptured very fine chordae to the anterior leaflet, A1. It was a fibroelastic valve quite small with not much available tissue and marked dilation of the anulus. I felt that repa ir in this 77-year-old gentleman would be prone to failure. For that reason, did a chordal sparing mi tral valve replacement with a 29 magnum bioprosthesis with interrupted 2-0 Tycron pledgeted mattress sutures incorporating the anterior leaflet at 8 and 4 o'clock. Left atrium was closed without difficu lty. I then proceeded with removing the cross-clamp with suction on the ascending aortic vent. In [facility], we did a vertical atriotomy, performed the free wall lesion superior and inferior vena ca lanie lesions with radiofrequency and the isthmus lesion with cryo. I then placed annular sutures aroun d the tricuspid valve and seated a 30 mm tricuspid valve annuloplasty ring without difficulty. [place] deven was closed. Spontaneous cardiac activity was noted to resume. Patient had A and V wires placed. H e was paced off cardiopulmonary bypass requiring some inotropic support after de-airing through the a pex and ascending aorta in Trendelenburg. Heparin was then reversed with protamine. The cannula was r emoved and oversewn. Transesophageal echo revealed good valvular function with persistent LV dysfunct ion with no segmental abnormalities. Two mediastinal drains were placed. The thymic fat and pericardi um were closed. Chest was closed in standard fashion. Patient was returned to ICU in stable condition . DESCRIPTION OF PROCEDURE: /[id number]/MODL
[2017-10-03] MEDS: HYDROCODONE/APAP 5/325 TAB PO PRN (20:10)
[2017-10-03] MEDS ORDERED: FUROSEMIDE 20 MG/2 ML VIAL IVP ONE ×3 (20:15→20:36)
[2017-10-03] MEDS: MUPIROCIN 2% 22 GM OINT NS SCH (20:43)
[2017-10-04] MEDS: HYDROCODONE/APAP 5/325 TAB PO PRN ×3 (03:14→20:22)
[2017-10-04 03:17] LABS: PLATELET COUNT 111 10^3/uL (150-400)
[2017-10-04 03:28] LABS: INR 1.42 (0.83-1.16); PROTIME(PATIENT) 17.5 SEC (12.0-15.0)
[2017-10-04] MEDS: ceFAZolin 2 GM/DEXTROSE 100 ML IV SCH ×3 (06:14→20:52)
[2017-10-04] MEDS: HEPARIN 5,000 UNIT/0.5 ML SYR SC SCH ×3 (06:14→20:26)
[2017-10-04] MEDS: MILRINONE/DEXTROSE 100 ML IV SCH (06:17)
--- NOTE | 2017-10-04 06:20 | SOAPPROG ---
SOAP Progress Note Assessment/Plan: Assessment: POD#1 chordal sparing MVR#29 Magna bioprosthesis, TVA#30 MC3 ring, CoxMaze IV Severe MR - s/p tissue MVR. Antithrombotic prophylaxis with Coumadin, target INR 2-3, duration as per Maze surveillance. Secondary TR - s/p TVA. Antithrombotic prophylaxis as per MVR. Longstanding persistent Afib - s/p CM4. Postop rhythm junct or slow AF. Currently Apaced 90 for optimized hemodynamics. Dilated cardiomyopathy with LVEF 40% and chronic sCHF - Off CPB with milrinone and levo. Extubated without incident. Levo steadily weaned overnoc. Adequately diuresing moderate fluid overload. Staggered intro of HF meds as appropriate. Acute expected blood loss anemia with mild coagulopathy - Stable s/p 2u PRBC. No evidence active bleeding. VTE prophylaxis with SQ hep until INR > 1.8. DM2 - Well controlled by preop A1c of 5.7%. Postop hyperglycemia managed with low dose insulin gtt. Transition to SSI planned. Reintro of metformin in 1-2 days if eating well and renal fx stable. 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 No apparent postop ischemia. Secondary prevention with baby ASA, BB as allowed by rhythm, and statin when eating well. Plan: Cont Apacing at 90. Wean levo to MAP > 70. Colloid prn CVP < 10. Lasix prn CVP > 18. Convert blakes to bulb suction. Keep familia and adam until off levo. Advance diet as tolerated. Monitor in ICU 1 more night. 10/04/17 06:16 Subjective: Hurts to move. Comfortable in chair. Didn't sleep much and looking forward to rtn to bed. Tolerating sips/chips. Objective: Vital Signs Temp Pulse Resp BP Pulse Ox 36.9 C 90 22 H 102/51 L 92 10/04/17 06:00 10/04/17 06:00 10/04/17 06:00 10/04/17 06:00 10/04/17 06:00 Laboratory Results 10/04/17 03:05 10/04/17 03:05 10/03/17 10/04/17 10/05/17 05:59 05:59 05:59 Intake Total 240 3248 Output Total 2180 Balance 240 1068 PT 17.5 SEC (12.0-15.0) H 10/04/17 03:05 INR 1.42 (0.83-1.16) H 10/04/17 03:05 Milrinone @ 0.5 mcg, Levo @ 2 mcg (down from 8). Apaced at 90. Underlying rhythm this am junct 60s. Balanced I/Os. No sig CTOP. CXR-> no PTX, mild pulm vasc congestion, no undrained effusions. Labs ok. Physical Exam - Physical Exam General Appearance: alert, no apparent distress Respiratory: lungs clear (grossly), other (blakes x 2 y-d to pleurovac, serosang drainage, no tidal, no air leak) Cardiac/Chest: regular rate, rhythm (paced), other (Sternotomy CDI. A&V wires intact) Abdomen: normal bowel sounds, non-tender, soft Skin: warm/dry Extremities: swelling (1+ gen) ICD10 Worksheet Patient Problems: Problems Problem Status Onset Acute blood loss anemia Acute Bioprosthetic mitral valve replacement, current hospitalization Acute S/P ablation of atrial fibrillation Acute Status post tricuspid valve repair Acute Atrial fibrillation Acute Persistent atrial fibrillation with rapid ventricular response Acute
[2017-10-04] MEDS: SENNOSIDES/DOCUSATE SODIUM TAB PO SCH ×2 (08:01→20:22)
[2017-10-04] MEDS: TIMOLOL 0.5% 15 ML OPHT.BTL EACHEYE SCH (08:02)
[2017-10-04] MEDS: ASPIRIN 81 MG CHEWABLE TAB PO SCH (08:02)
[2017-10-04] MEDS: PANTOPRAZOLE SODIUM 40 MG TAB PO SCH (08:02)
[2017-10-04] MEDS: MUPIROCIN 2% 22 GM OINT NS SCH ×2 (08:02→20:22)
[2017-10-04] MEDS ORDERED: traMADol 50 MG TAB PO PRN (08:03)
[2017-10-04] MEDS ORDERED: ASPIRIN 81 MG CHEWABLE TAB TUBE PRN (09:00)
[2017-10-04] MEDS ORDERED: D50W 25 GM/50 ML SYR IVP PRN (10:06)
[2017-10-04] MEDS: INSULIN REGULAR HUMAN 100 UNIT/ML UNIT SC SCH ×3 (12:33→20:51)
[2017-10-04] MEDS ORDERED: PANTOPRAZOLE SODIUM 40 MG TAB PO SCH (12:36)
[2017-10-04] MEDS ORDERED: FUROSEMIDE 20 MG/2 ML VIAL IVP ONE (16:07)
[2017-10-05] MEDS: HEPARIN 5,000 UNIT/0.5 ML SYR SC SCH ×3 (04:47→20:41)
[2017-10-05 05:05] LABS: PLATELET COUNT 98 10^3/uL (150-400)
[2017-10-05 05:26] LABS: INR 1.44 (0.83-1.16); PROTIME(PATIENT) 17.7 SEC (12.0-15.0)
--- NOTE | 2017-10-05 06:18 | SOAPPROG ---
SOAP Progress Note Assessment/Plan: POD#2 chordal sparing MVR#29 Magna bioprosthesis, TVA#30 MC3 ring, CoxMaze IV Severe MR - s/p tissue MVR. Antithrombotic prophylaxis with Coumadin, target INR 2-3, duration as per Maze surveillance. Secondary TR - s/p TVA. Antithrombotic prophylaxis as per MVR. Longstanding persistent Afib - s/p CM4. Postop rhythm junct or slow AF. Currently paced for optimized hemodynamics. Dilated cardiomyopathy with LVEF 40% and chronic sCHF - Adequately diuresing moderate fluid overload. Staggered intro of HF meds as appropriate. Acute expected blood loss anemia with mild coagulopathy - Stable s/p 2u PRBC. No evidence active bleeding. VTE prophylaxis with SQ hep until INR > 1.8. DM2 - Well controlled by preop A1c of 5.7%. Postop hyperglycemia managed with low dose insulin gtt. Transition to SSI planned. Reintro of metformin in 1-2 days if eating well and renal fx stable. 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 No apparent postop ischemia. Secondary prevention with baby ASA, BB as allowed by rhythm, and statin when eating well. Subjective: Pain well-controlled. Denies SOB. Objective: Vital Signs Temp Pulse Resp BP Pulse Ox 36.5 C 80 22 H 116/75 93 10/05/17 04:00 10/05/17 06:00 10/05/17 06:00 10/05/17 06:00 10/05/17 06:00 Laboratory Results 10/05/17 04:45 10/05/17 04:45 10/04/17 10/05/17 10/06/17 05:59 05:59 05:59 Intake Total 3248 1705.9 Output Total 2180 1370 Balance 1068 335.9 PT 17.7 SEC (12.0-15.0) H 10/05/17 04:45 INR 1.44 (0.83-1.16) H 10/05/17 04:45 Physical Exam - Physical Exam General Appearance: WD/WN, alert, no apparent distress EENT: No scleral icterus (R), No scleral icterus (L) Neck: normal inspection Respiratory: No respiratory distress Cardiac/Chest: bradycardia, irregularly irregular Abdomen: non-tender, soft, No distended Skin: normal color, warm/dry Extremities: No pedal edema Neuro/Psych: no motor/sensory deficits, alert, normal mood/affect, oriented x 3 ICD10 Worksheet Patient Problems: Problems Problem Status Onset Acute blood loss anemia Acute Bioprosthetic mitral valve replacement, current hospitalization Acute S/P ablation of atrial fibrillation Acute Status post tricuspid valve repair Acute Atrial fibrillation Acute Persistent atrial fibrillation with rapid ventricular response Acute
[2017-10-05] MEDS: INSULIN REGULAR HUMAN 100 UNIT/ML UNIT SC SCH ×4 (07:49→20:38)
[2017-10-05] MEDS: ASPIRIN 81 MG CHEWABLE TAB PO SCH (09:22)
[2017-10-05] MEDS: TIMOLOL 0.5% 15 ML OPHT.BTL EACHEYE SCH (09:23)
[2017-10-05] MEDS: SENNOSIDES/DOCUSATE SODIUM TAB PO SCH ×2 (09:23→20:36)
[2017-10-05] MEDS: PANTOPRAZOLE SODIUM 40 MG TAB PO SCH (09:23)
[2017-10-05] MEDS: MUPIROCIN 2% 22 GM OINT NS SCH (09:23)
--- NOTE | 2017-10-05 12:49 | ASMTCMCOM ---
CM Note CM Note Notes: OT is recommending SNF rehab for patient at d/c. PT has not eval'ed yet. CM will follow. Date Signed: 10/05/2017 12:49 PM Electronically Signed By:Kaylee Sheffield LCSW
[2017-10-05] MEDS ORDERED: WARFARIN SODIUM 1 MG TAB PO ONE (16:45)
[2017-10-06 04:40] LABS: PLATELET COUNT 88 10^3/uL (150-400)
[2017-10-06 04:50] LABS: INR 1.25 (0.83-1.16); PROTIME(PATIENT) 15.9 SEC (12.0-15.0)
[2017-10-06] MEDS: HEPARIN 5,000 UNIT/0.5 ML SYR SC SCH ×3 (05:46→22:12)
--- NOTE | 2017-10-06 07:18 | SOAPPROG ---
SOAP Progress Note Assessment/Plan: POD#3 Chordal sparing MVR#29 Magna bioprosthesis, TVA#30 MC3 ring, CoxMaze IV Severe MR - s/p tissue MVR. On ASA. Antithrombotic prophylaxis with Coumadin, target INR 2-3, duration as per Maze surveillance. INR 1.25 (1.44). Secondary TR - s/p TVA. Antithrombotic prophylaxis as per MVR. Longstanding persistent Afib - s/p CM4. Postop rhythm junct or slow AF. Currently paced for optimized hemodynamics. Dilated cardiomyopathy with LVEF 40% and chronic sCHF - Worsening fluid overload with patient 7kg over preop weight. Staggered intro of HF meds as appropriate. Acute expected blood loss anemia with mild coagulopathy - Stable s/p 2u PRBC. No evidence active bleeding. VTE prophylaxis with SQ hep held due to low platelets. Secondary thrombocytopenia- Worsening with plt count 88 (98). Will hold SQ hep. DM2 - Well controlled by preop A1c of 5.7%. Postop hyperglycemia managed with low dose insulin gtt, transitioned to SSI. Reintro of metformin when eating better and if renal fx remains stable. 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 No apparent postop ischemia. Secondary prevention with baby ASA, BB as allowed by rhythm, and statin when eating well. Chest tube drainage- 70mls from both tubes/12hrs. Plan: - Coumadin mg today - Will d/c chest drains today. - Will start Lasix. - Will start statin. - Continue to watch patient's rhythm. May need PPM. - Possible transfer to the floor later on today. Subjective: "I'm not having any pain." Objective: Vital Signs Temp Pulse Resp BP Pulse Ox 37.2 C 76 21 H 127/67 H 97 10/06/17 04:27 10/06/17 04:27 10/06/17 04:27 10/06/17 04:27 10/06/17 04:27 Laboratory Results 10/06/17 04:25 10/06/17 04:25 10/05/17 10/06/17 10/07/17 05:59 05:59 05:59 Intake Total 1705.9 550 Output Total 1370 245 Balance 335.9 305 PT 15.9 SEC (12.0-15.0) H 10/06/17 04:25 INR 1.25 (0.83-1.16) H 10/06/17 04:25 Physical Exam - Physical Exam General Appearance: WD/WN, alert, no apparent distress Respiratory: lungs clear, decreased breath sounds (bases) Cardiac/Chest: regular rate, rhythm, other (no murmur or rub, sternum stable, sternotomy c/d/i) Abdomen: normal bowel sounds, non-tender, soft Skin: warm/dry Extremities: pedal edema Neuro/Psych: alert, normal mood/affect ICD10 Worksheet Patient Problems: Problems Problem Status Onset Acute blood loss anemia Acute Bioprosthetic mitral valve replacement, current hospitalization Acute S/P ablation of atrial fibrillation Acute Status post tricuspid valve repair Acute Atrial fibrillation Acute Persistent atrial fibrillation with rapid ventricular response Acute
[2017-10-06] MEDS: INSULIN REGULAR HUMAN 100 UNIT/ML UNIT SC SCH ×4 (08:15→20:47)
[2017-10-06] MEDS: SENNOSIDES/DOCUSATE SODIUM TAB PO SCH ×3 (09:03→22:11)
[2017-10-06] MEDS: ASPIRIN 81 MG CHEWABLE TAB PO SCH (09:03)
[2017-10-06] MEDS: PANTOPRAZOLE SODIUM 40 MG TAB PO SCH (09:03)
[2017-10-06] MEDS: TIMOLOL 0.5% 15 ML OPHT.BTL EACHEYE SCH (09:20)
[2017-10-06] MEDS ORDERED: POLYETHYLENE GLYCOL 3350 17 GM PKT PO PRN (14:20)
[2017-10-06] MEDS ORDERED: CEPACOL LOZENGE PO PRN (14:20)
[2017-10-06] MEDS ORDERED: BISACODYL 10 MG SUPP PR PRN (14:20)
[2017-10-06] MEDS ORDERED: LACTULOSE 20 GM/30 ML UDCUP PO PRN (14:20)
[2017-10-06] MEDS ORDERED: ACETAMINOPHEN 325 MG TAB PO PRN (14:20)
[2017-10-06] MEDS ORDERED: traMADol 50 MG TAB PO PRN (14:20)
[2017-10-06] MEDS ORDERED: HYDROCODONE/APAP 5/325 TAB PO PRN (14:20)
[2017-10-06] MEDS ORDERED: MAGNESIUM HYDROXIDE 30 ML UDCUP PO PRN (14:20)
[2017-10-06] MEDS: FUROSEMIDE 40 MG TAB PO SCH (14:43)
[2017-10-06] MEDS ORDERED: WARFARIN SODIUM 1 MG TAB PO ONE (16:00)
[2017-10-06] MEDS: ATORVASTATIN CALCIUM 10 MG TAB PO SCH (18:03)
[2017-10-06] MEDS: POTASSIUM CL 20 MEQ TAB PO SCH (20:47)
[2017-10-06] MEDS: SODIUM CL NASAL 45 ML BTL EACHNARE SCH (22:11)
[2017-10-07 05:36] LABS: INR 1.24 (0.83-1.16); PROTIME(PATIENT) 15.8 SEC (12.0-15.0)
--- NOTE | 2017-10-07 07:25 | SOAPPROG ---
SOAP Progress Note Assessment/Plan: POD#4 Chordal sparing MVR#29 Magna bioprosthesis, TVA#30 MC3 ring, CoxMaze IV Severe MR - s/p tissue MVR. On ASA. Antithrombotic prophylaxis with Coumadin, target INR 2-3, duration as per Maze surveillance. INR 1.24 (1.25). Coumadin 1mg today. Secondary TR - s/p TVA. Antithrombotic prophylaxis as per MVR. Longstanding persistent Afib - s/p CM4. Postop rhythm junct or slow AF. Still requiring pacing for optimized hemodynamics. Will ask EP to evaluate patient for PPM. Dilated cardiomyopathy with LVEF 40% and chronic sCHF - Improving fluid overload however patient still 6kg over preop weight. Staggered intro of HF meds as appropriate. On Lasix. Acute expected blood loss anemia with mild coagulopathy - Stable s/p 2u PRBC. No evidence active bleeding. VTE prophylaxis with SQ hep held due to low platelets. Secondary thrombocytopenia- Improving with plt count 94 (88). Will continue to hold SQ hep. DM2 - Well controlled by preop A1c of 5.7%. Postop hyperglycemia managed with low dose insulin gtt, transitioned to SSI. Reintro of metformin when eating better and if renal fx remains stable. 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 No apparent postop ischemia. Secondary prevention with baby ASA and BB as allowed by rhythm. On Lipitor. Disposition- to evaluate patient for SNF. Transfer to floor when bed available. Subjective: "I had a wonderful night." Patient reports good pain control. Objective: Vital Signs Temp Pulse Resp BP Pulse Ox 36.7 C 68 14 112/58 L 98 10/07/17 04:00 10/07/17 04:00 10/07/17 04:00 10/07/17 04:00 10/07/17 04:00 Laboratory Results 10/07/17 05:10 10/07/17 05:10 10/06/17 10/07/17 10/08/17 05:59 05:59 05:59 Intake Total 550 1200 Output Total 245 1275 Balance 305 -75 PT 15.8 SEC (12.0-15.0) H 10/07/17 05:10 INR 1.24 (0.83-1.16) H 10/07/17 05:10 Physical Exam - Physical Exam General Appearance: WD/WN, alert, no apparent distress Respiratory: lungs clear Cardiac/Chest: other (Irregular, No murmurs or rubs. Sternum stable, sternotomy c/d/i.) Abdomen: normal bowel sounds, non-tender, soft Skin: warm/dry Extremities: other (Mild lower extremity edema) Neuro/Psych: alert, normal mood/affect, oriented x 3 ICD10 Worksheet Patient Problems: Problems Problem Status Onset Acute blood loss anemia Acute Bioprosthetic mitral valve replacement, current hospitalization Acute S/P ablation of atrial fibrillation Acute Status post tricuspid valve repair Acute Atrial fibrillation Acute Persistent atrial fibrillation with rapid ventricular response Acute
[2017-10-07] MEDS: HEPARIN 5,000 UNIT/0.5 ML SYR SC SCH ×4 (07:51→22:47)
[2017-10-07] MEDS: INSULIN REGULAR HUMAN 100 UNIT/ML UNIT SC SCH ×4 (07:51→22:46)
[2017-10-07] MEDS: FUROSEMIDE 40 MG TAB PO SCH ×2 (08:06→15:36)
[2017-10-07] MEDS: ASPIRIN 81 MG CHEWABLE TAB PO SCH (08:06)
[2017-10-07] MEDS: SENNOSIDES/DOCUSATE SODIUM TAB PO SCH (08:07)
[2017-10-07] MEDS: ATORVASTATIN CALCIUM 10 MG TAB PO SCH (08:09)
[2017-10-07] MEDS: PANTOPRAZOLE SODIUM 40 MG TAB PO SCH (08:09)
[2017-10-07] MEDS: POTASSIUM CL 20 MEQ TAB PO SCH ×2 (08:10→21:07)
[2017-10-07] MEDS: TIMOLOL 0.5% 15 ML OPHT.BTL EACHEYE SCH (08:11)
[2017-10-07] MEDS ORDERED: NEOMY SULF/BACITRAC ZN/POLY 30 GM OINTTUBE TP SCH (09:00)
[2017-10-07] MEDS: SODIUM CL NASAL 45 ML BTL EACHNARE SCH ×2 (10:25→22:46)
[2017-10-07] MEDS ORDERED: WARFARIN SODIUM 1 MG TAB PO ONE (16:00)
--- NOTE | 2017-10-08 06:34 | SOAPPROG ---
SOAP Progress Note Assessment/Plan: Assessment: POD#5 chordal sparing MVR#29 Magna bioprosthesis, TVA#30 MC3 ring, CoxMaze IV Severe MR - s/p tissue MVR. Antithrombotic prophylaxis with Coumadin, target INR 2-3, duration as per Maze surveillance. Secondary TR - s/p TVA. Antithrombotic prophylaxis as per MVR. Longstanding persistent Afib - s/p CM4. Postop rhythm junct or slow AF. Antinodals avoided. Slow anticoagulation pending EP eval for PPM. Dilated cardiomyopathy with LVEF 40% and chronic sCHF - Off CPB with milrinone and levo. Extubated without incident. No prolonged vasoactive support. Actively diuresing moderate fluid overload. Chest tubes out. Staggered intro of HF meds as appropriate. Acute expected blood loss anemia with mild coagulopathy - Stable s/p 2u PRBC. No evidence active bleeding. VTE prophylaxis with SQ hep (as allowed by platelet count) until INR > 1.8. DM2 - Well controlled by preop A1c of 5.7%. Postop hyperglycemia managed with low dose insulin gtt. Transitioned to SSI with min correctional needs. Reintro of metformin tonight. 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 No apparent postop ischemia. Secondary prevention with baby ASA, statin and BB as allowed by rhythm. Plan: Reduce backup VVI to 46. Start Lovenox bridge. NPO for DC CVSN tomorrow. Coumadin 2.5 mg today. Cont BID lasix. Baseline postop echo. Dispo - Anticipate SNF in 2-3 days pending stability of rhythm. 10/08/17 06:40 Subjective: Feels well. Thrilled to have chest tubes out. Improving mobility and IS. No acute concerns. Objective: Vital Signs Temp Pulse Resp BP Pulse Ox 36.6 C 74 16 114/66 96 10/07/17 20:00 10/08/17 00:00 10/08/17 00:00 10/07/17 20:00 10/08/17 00:00 Laboratory Results 10/07/17 05:10 10/07/17 05:10 10/07/17 10/08/17 10/09/17 05:59 05:59 05:59 Intake Total 1200 920 Output Total 1275 1835 Balance -75 -915 PT 15.8 SEC (12.0-15.0) H 10/07/17 05:10 INR 1.24 (0.83-1.16) H 10/07/17 05:10 Ongoing JR vs AF w SVR. Min suppl O2 req. Improving fluid balance. +6 kg overall. WBC trending down. Plt trending up. Physical Exam - Physical Exam General Appearance: alert, no apparent distress Respiratory: crackles (few scattered at bases), other (CT dressing CDI) Cardiac/Chest: regular rate, rhythm (with occ premature beats), other (Vwires intact) Abdomen: non-tender, soft Skin: warm/dry Extremities: swelling (1+ perimalleolar) ICD10 Worksheet Patient Problems: Problems Problem Status Onset Acute blood loss anemia Acute Bioprosthetic mitral valve replacement, current hospitalization Acute S/P ablation of atrial fibrillation Acute Status post tricuspid valve repair Acute Atrial fibrillation Acute Persistent atrial fibrillation with rapid ventricular response Acute
[2017-10-08 07:31] LABS: INR 1.21 (0.83-1.16); PROTIME(PATIENT) 15.5 SEC (12.0-15.0)
[2017-10-08] MEDS: HEPARIN 5,000 UNIT/0.5 ML SYR SC SCH (07:37)
[2017-10-08] MEDS: INSULIN REGULAR HUMAN 100 UNIT/ML UNIT SC SCH ×4 (08:25→21:02)
[2017-10-08] MEDS: FUROSEMIDE 40 MG TAB PO SCH ×2 (09:00→15:31)
[2017-10-08] MEDS: CHOLECALCIFEROL VIT D3 1,000 UNITS TAB PO SCH (09:00)
[2017-10-08] MEDS: PANTOPRAZOLE SODIUM 40 MG TAB PO SCH (09:01)
[2017-10-08] MEDS: ASPIRIN 81 MG CHEWABLE TAB PO SCH (09:01)
[2017-10-08] MEDS: POTASSIUM CL 20 MEQ TAB PO SCH ×2 (09:02→20:56)
[2017-10-08] MEDS: ATORVASTATIN CALCIUM 10 MG TAB PO SCH (09:02)
[2017-10-08] MEDS: TIMOLOL 0.5% 15 ML OPHT.BTL EACHEYE SCH (09:03)
[2017-10-08] MEDS: SODIUM CL NASAL 45 ML BTL EACHNARE SCH ×2 (09:04→20:57)
--- NOTE | 2017-10-08 09:13 | CPEKG ---
Heart Rate: 83 RR Interval: 723 QRSD Interval: 96 QT Interval: 384 QTC Interval: 452 QRS [place]: 4 T Wave [place]: -23 EKG Severity - ABNORMAL ECG - EKG Impression: ATRIAL FIBRILLATION, possible left AT EKG Impression: LOW VOLTAGE IN FRONTAL LEADS EKG Impression: BORDERLINE T ABNORMALITIES, INFERIOR LEADS Electronically Signed By: Eduardo Bedoya 08-Oct-2017 11:22:13
[2017-10-08] MEDS ORDERED: AMIODARONE HCL 200 MG TAB PO SCH (09:15)
[2017-10-08] MEDS: ENOXAPARIN 80 MG/0.8 ML SYR SC SCH ×2 (09:43→20:56)
--- NOTE | 2017-10-08 11:49 | ASMTCMCOM ---
CM Note CM Note Notes: PT/OT recommending SNF Rehab. Spoke to patient, who lives in [place]. He is interested in a facility close to home so friends can visit. [facility] is in [place] and contracts w/his ins. Sent a referral to [facility]. Date Signed: 10/08/2017 11:49 AM Electronically Signed By:Larissa Marie LCSW
--- NOTE | 2017-10-08 15:41 | PDCARPN ---
Cardiology Progress Note Assessment/Plan: Assessment: 1. MV replacement, TV repair, L+R maze 2. Recurrent atrial tachycardia/coarse AFIB based on ECG Plan: 1. Amiodarone 200 mg daily 2. Lovenox until INR therapeutic 3. KAE guided DCCV tomorrow 4. If bradycardic on amiodarone, consider permanent pacing pre discharge. 10/08/17 15:40 Objective: Vital Signs (8 Hrs) Temp Pulse Resp BP Pulse Ox 10/08/17 15:26 36.9 C 70 22 H 114/68 97 10/08/17 12:06 77 L 10/08/17 11:50 36.9 C 69 23 H 100/52 L 92 10/08/17 08:00 36.6 C 84 16 109/57 L 99 Intake/Output (24 Hrs) 10/07/17 10/08/17 10/09/17 11:59 11:59 11:59 Intake Total 1640 1080 100 Output Total 1580 2280 150 Balance 60 -1200 -50 Intake: Oral (ml) 1640 1080 100 Output: Urine (ml) 1580 2280 150 Urinal 1580 2280 150 Other: Weight 96.9 kg 97.3 kg Number of Voids Urinal 4 Number of Stools Urinal 1 1 Result Diagrams: 10/08/17 06:40 10/08/17 06:40 Telemetry: AT vs AFIB ICD10 Worksheet Patient Problems: Problems Problem Status Onset Acute blood loss anemia Acute Status post tricuspid valve repair Acute S/P ablation of atrial fibrillation Acute Bioprosthetic mitral valve replacement, current hospitalization Acute Atrial fibrillation Acute Persistent atrial fibrillation with rapid ventricular response Acute
[2017-10-08] MEDS ORDERED: WARFARIN SODIUM 2 MG TAB PO ONE (16:00)
[2017-10-08] MEDS ORDERED: WARFARIN SODIUM 2.5 MG TAB PO ONE (16:00)
[2017-10-08] MEDS: metFORMIN SR 500 MG TAB PO SCH (17:02)
--- NOTE | 2017-10-09 06:37 | SOAPPROG ---
SOAP Progress Note Assessment/Plan: Assessment: POD#6 chordal sparing MVR#29 Magna bioprosthesis, TVA#30 MC3 ring, CoxMaze IV Severe MR - s/p tissue MVR. Antithrombotic prophylaxis with Coumadin, target INR 2-3, duration as per Maze surveillance. Secondary TR - s/p TVA. Antithrombotic prophylaxis as per MVR. Longstanding persistent Afib - s/p CM4. Postop rhythm predom junct or slow AF with intermittent AT. Started on low dose amio. BB avoided. EP consulted. DC CVSN planned. Possible PPM if recurrent sushant. Thromboprophylaxis with lovenox bridge pending therapeutic INR. Dilated cardiomyopathy with LVEF 40% and chronic sCHF - Off CPB with milrinone and levo. Extubated without incident. No prolonged vasoactive support. Actively diuresing moderate fluid overload. Chest tubes out. Staggered intro of HF meds as appropriate. Acute expected blood loss anemia with mild coagulopathy - Stable s/p 2u PRBC. No evidence active bleeding. VTE prophylaxis with lovenox. DM2 - Well controlled by preop A1c of 5.7%. Postop hyperglycemia managed with low dose insulin gtt. Transitioned to SSI with min correctional needs. Metformin resumed. Likely can suspend SSI by tomorrow. 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 No apparent postop ischemia. Secondary prevention with baby ASA, statin and BB as allowed by rhythm. Plan: Cont backup VVI of 46. DC CVSN per cards. Cont amio 200 mg daily. Cont Coumadin 2.5 mg daily. Relax diuresis. Dispo - Anticipate SNF in 1-2 days pending stability of rhythm. 10/09/17 06:42 Subjective: Hungry, o/w no concerns. Objective: Vital Signs Temp Pulse Resp BP Pulse Ox 36.9 C 98 16 111/68 96 10/09/17 05:54 10/09/17 05:54 10/09/17 05:54 10/09/17 05:54 10/09/17 05:54 Laboratory Results 10/08/17 06:40 10/09/17 05:45 10/08/17 10/09/17 10/10/17 05:59 05:59 05:59 Intake Total 1320 1240 Output Total 2435 870 Balance -1115 370 PT 15.5 SEC (12.0-15.0) H 10/08/17 06:40 INR 1.21 (0.83-1.16) H 10/08/17 06:40 Intermittent AF w CVR overnoc. One episode junct escape vs triggered Vpace. Almost off O2. Adequate I/Os. Now within 3 kg admit wt. Labs ok. Physical Exam - Physical Exam General Appearance: alert, no apparent distress Respiratory: lungs clear Cardiac/Chest: regular rate, rhythm, other (Sternum grossly stable. Sternotomy CDI.) Abdomen: non-tender, soft Skin: warm/dry Extremities: swelling (trace-1+ perimalleolar) ICD10 Worksheet Patient Problems: Problems Problem Status Onset Acute blood loss anemia Acute Bioprosthetic mitral valve replacement, current hospitalization Acute S/P ablation of atrial fibrillation Acute Status post tricuspid valve repair Acute Atrial fibrillation Acute Persistent atrial fibrillation with rapid ventricular response Acute
[2017-10-09 06:41] LABS: INR 1.23 (0.83-1.16); PROTIME(PATIENT) 15.7 SEC (12.0-15.0)
[2017-10-09] MEDS ORDERED: POTASSIUM CL 20 MEQ TAB PO ONE (09:00)
[2017-10-09] MEDS ORDERED: FUROSEMIDE 20 MG TAB PO ONE (09:00)
[2017-10-09] MEDS: TIMOLOL 0.5% 15 ML OPHT.BTL EACHEYE SCH (09:05)
[2017-10-09] MEDS: AMIODARONE HCL 200 MG TAB PO SCH (09:07)
[2017-10-09] MEDS: ASPIRIN 81 MG CHEWABLE TAB PO SCH (09:08)
[2017-10-09] MEDS: PANTOPRAZOLE SODIUM 40 MG TAB PO SCH (09:08)
[2017-10-09] MEDS: ATORVASTATIN CALCIUM 10 MG TAB PO SCH (09:10)
[2017-10-09] MEDS: ENOXAPARIN 80 MG/0.8 ML SYR SC SCH (09:10)
[2017-10-09] MEDS: CHOLECALCIFEROL VIT D3 1,000 UNITS TAB PO SCH (09:10)
[2017-10-09] MEDS: SODIUM CL NASAL 45 ML BTL EACHNARE SCH ×2 (09:11→20:43)
[2017-10-09] MEDS: INSULIN REGULAR HUMAN 100 UNIT/ML UNIT SC SCH ×4 (10:25→20:43)
--- NOTE | 2017-10-09 12:41 | CPEKG ---
Heart Rate: 72 RR Interval: 833 QRSD Interval: 94 QT Interval: 408 QTC Interval: 447 QRS [place]: 10 T Wave [place]: 15 EKG Severity - ABNORMAL ECG - EKG Impression: atrial tachycardia with intermittent V pacing and no atrial capture Electronically Signed By: Eduardo Bedoya 09-Oct-2017 14:58:37
[2017-10-09] MEDS ORDERED: PROPOFOL 200 MG/20 ML VIAL ONE (12:49)
[2017-10-09] MEDS ORDERED: ATROPINE SULFATE 1 MG/10 ML SYR ONE (13:03)
--- NOTE | 2017-10-09 13:27 | CPEKG ---
Heart Rate: 172 RR Interval: 349 QRSD Interval: 96 QTC Interval: 0 QRS [place]: 20 EKG Severity - ABNORMAL ECG - EKG Impression: AV paced, upon inhibition of pacing there is asystole Electronically Signed By: Eduardo Bedoya 09-Oct-2017 14:57:26
--- NOTE | 2017-10-09 13:44 | PDTEE1 ---
KAE Cardioversion Procedure Procedure: electrical cardioversion, transesophageal echo Indications: other (atrial tachycardia post maze, documented on ecg using epicardial leads) Consent: signed and in chart Anticoagulation: warfarin, lovenox Procedural Details: Pads were placed in anterior-posterior position. KAE probe was advanced and standard images obtained. There is no evidence of left atrial or left atrial appendage thrombus. Synchronized cardioversion attempt #1: 200J Results: normal sinus rhythm Conclusions: successful KAE cardioversion Conclusion Comment: Post cardioversion patient has very slow (<30 bpm) underlying atrial rhythm. Will need permanent pacing. d.w. daughter who is comfortable signing consent, patient had d.w. myself and Dr. Chen yesterday. Risks of procedure including pneumothorax, dvt, cardiac tamponade, infection, lead dislodgement, increased risk of bleeding etc d.w. him. Patient Problems: Problems Problem Status Onset Acute blood loss anemia Acute Status post tricuspid valve repair Acute S/P ablation of atrial fibrillation Acute Bioprosthetic mitral valve replacement, current hospitalization Acute Atrial fibrillation Acute Persistent atrial fibrillation with rapid ventricular response Acute
[2017-10-09] MEDS ORDERED: BACITRACIN IRRIGATION/NS 50,000 UNITS/1,000 ML BTL IRR ONE (13:55)
[2017-10-09] MEDS ORDERED: NS 1,000 ML IV ONE (13:55)
[2017-10-09] MEDS ORDERED: ceFAZolin 2 GM/SWFI 2 GM/20 ML SYR IVP ONE (13:55)
[2017-10-09] MEDS ORDERED: DIAZEPAM 5 MG TAB PO ONE (13:55)
[2017-10-09] MEDS ORDERED: diphenhydrAMINE 25 MG CAP PO ONE (13:55)
[2017-10-09] MEDS ORDERED: LIDOCAINE/PRILOCAINE 1 EACH CRTUBE TP ONE (13:57)
[2017-10-09] MEDS ORDERED: fentaNYL 100 MCG/2 ML INJ ONE (14:04)
[2017-10-09] MEDS ORDERED: IOPAMIDOL (ISOVUE-300) 100 ML BTL ONE (14:04)
[2017-10-09] MEDS ORDERED: BUPIVACAINE 0.5% 30 ML SDV ONE (14:04)
[2017-10-09] MEDS ORDERED: LIDOCAINE 1% 300 MG/30 ML SDV ONE (14:04)
[2017-10-09] MEDS ORDERED: MIDAZOLAM 2 MG/2 ML VIAL ONE (14:04)
[2017-10-09] MEDS ORDERED: PROPOFOL/EMULSION 500 MG/50 ML BOTTLE IV ONE (15:03)
--- NOTE | 2017-10-09 16:33 | EPPROC ---
Electrophysiology Procedure Note: PROCEDURE PERFORMED: 1. Implantation of an A/V Pacemaker 2. Subclavian vein angiography 3. Fluoroscopy INDICATION: Recent MVR, TV repair, maze Post cardioversion, had no atrial rhythm, asystole in absence of pacing from epicardial pacemaker wires. PROCEDURE NOTE: Patient presented to the cardiac catheterization laboratory in a fasting, post absorptive state . Dr. Alex Reyes administered sedation. The left infraclavicular area was prepped and draped in the usual sterile fashion. Lidocaine plus bupivacaine was used for local anesthesia. Left subclavian venography was performed by injection of iodinated contrast into the left antecubital vein. This was done to assure patency of the vein and also to assess for any anatomical aberrations. Using a combination of blunt and sharp dissection and electrocautery, the dissection was carried down to the prepectoral fascia. A pocket was made in this anatomical plane. All bleeding was controlled with electrocautery. The pocket was packed with gauze soaked in antibiotic solution. Fluoroscopy was utilized during the entire procedure for venous access and placement of the leads. Using a direct stick technique the left extrathoracic axillary vein was accessed with 2 sticks using the modified Seldinger technique. Placement of the guidewires into the venous system was confirmed by low-pressure blood return and also by visualizing the guidewires advancing into the inferior vena cava. A purse string suture was applied around the guidewires. Two #7 [place] sheaths were advanced under fluoroscopic guidance over the guidewire. An active fixation ventricular lead was advanced into the right ventricular apex and screwed in place. An active fixation atrial lead was advanced into the right atrial appendage and screwed in place. The peel away sheaths were removed. Pacing thresholds, sensing parameters and lead impedances were measured. There was no diaphragmatic stimulation at maximum output. The leads were sutured to the prepectoral fascia with 3 nonabsorbable sutures each. The pocket was again inspected for any bleeding. The leads were attached to the pacemaker securely. The pacemaker was inserted into the pocket and secured in place with a nonabsorbable suture. Fluoroscopy was performed in THOMPSON and ROMANIAN planes to verify right-sided placement of the leads. Also fluoroscopy of the pacemaker pocket was performed. The pacemaker pocket was closed in 3 layers with absorbable monocryl sutures and manjit. Appropriate dressing was applied. The patient left the cardiac catheterization laboratory in stable condition. Serial Numbers: 1. Device: SJM Assurity MRI 2272 [id number] 2. Atrial Lead: SJM Tendril STS 8TC SN [id number] 3. Ventricular Lead: SJM Tendril STS 8TC [id number] Stimulation Thresholds & Impedance Measurements: 1. Atrial Lead P 2.4 mV 0.9 V 0.5 ms 374 ohm 2. Ventricular Lead R 4 mV 0.6 V 0.5 ms 744 ohm Edouard Pacing Parameters 1. Pacing mode: DDDR 2. Lower rate: 80ppm 3. Upper tracking rate: 130 ppm 4. Upper sensor rate: 130 ppm Patient had V pacing while pacing the atrium at 80 bpm with AV delay of 400 ms. His LVEF is 45%, if after recovery from surgery and stopping amiodarone, his AV conduction does not improve, may need to consider adding LV lead Patient Problems: Problems Problem Status Onset Acute blood loss anemia Acute Status post tricuspid valve repair Acute S/P ablation of atrial fibrillation Acute Bioprosthetic mitral valve replacement, current hospitalization Acute Atrial fibrillation Acute Persistent atrial fibrillation with rapid ventricular response Acute
--- NOTE | 2017-10-09 16:46 | CPEKG ---
Heart Rate: 81 RR Interval: 741 P-R Interval: 171 QRSD Interval: 148 QT Interval: 472 QTC Interval: 548 P [place]: 0 QRS [place]: -77 T Wave [place]: 85 EKG Severity - ABNORMAL ECG - EKG Impression: A-V DUAL-PACED RHYTHM Electronically Signed By: Eduardo Bedoya 09-Oct-2017 17:05:34
[2017-10-09] MEDS ORDERED: LIDOCAINE/PRILOCAINE 1 EACH CRTUBE TP PRN (17:08)
[2017-10-09] MEDS: metFORMIN SR 500 MG TAB PO SCH (18:24)
[2017-10-10 06:35] LABS: PLATELET COUNT 240 10^3/uL (150-400)
[2017-10-10 06:43] LABS: INR 1.2 (0.83-1.16); PROTIME(PATIENT) 15.4 SEC (12.0-15.0)
--- NOTE | 2017-10-10 08:02 | SOAPPROG ---
SOAP Progress Note Assessment/Plan: POD#7 chordal sparing MVR with #29 Magna bioprosthesis, TVA with #30 MC3 ring, CoxMaze IV POD #1: A/V PPM implantation Severe MR - s/p tissue MVR. Antithrombotic prophylaxis with Coumadin, target INR 2-3, duration as per Maze surveillance. Secondary TR - s/p TVA. Antithrombotic prophylaxis as per MVR. Longstanding persistent Afib - s/p CM4. Continue Coumadin as per CM protocol. Post-op bradyarrhythmias - s/p A/V PPM implantation. Will cut epicardial wires today. Dilated cardiomyopathy with LVEF 40% and chronic sCHF - No sings of fluid overload. Staggered intro of HF meds as appropriate. Acute expected blood loss anemia with mild coagulopathy - Stable s/p 2u PRBC. No evidence active bleeding. VTE prophylaxis with Lovenox/Coumadin/SCDs. DM2 - Well controlled by preop A1c of 5.7%. Continue Metformin. 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 No apparent postop ischemia. Secondary prevention with baby ASA, statin and BB as tolerated. Disposition - likely transfer to SNF today. Subjective: Feels well today. No complaints. Objective: Vital Signs Temp Pulse Resp BP Pulse Ox 36.8 C 82 15 108/65 93 10/10/17 07:11 10/10/17 07:11 10/10/17 07:11 10/10/17 07:11 10/10/17 07:11 Laboratory Results 10/10/17 06:20 10/10/17 06:20 10/09/17 10/10/17 10/11/17 05:59 05:59 05:59 Intake Total 1240 0 Output Total 870 525 Balance 370 -525 PT 15.4 SEC (12.0-15.0) H 10/10/17 06:20 INR 1.20 (0.83-1.16) H 10/10/17 06:20 Physical Exam - Physical Exam General Appearance: WD/WN, alert, no apparent distress EENT: No scleral icterus (R), No scleral icterus (L) Neck: normal inspection Respiratory: No respiratory distress Cardiac/Chest: irregularly irregular Abdomen: non-tender, soft, No distended Skin: normal color, warm/dry Extremities: No pedal edema Neuro/Psych: no motor/sensory deficits, alert, normal mood/affect, oriented x 3 ICD10 Worksheet Patient Problems: Problems Problem Status Onset Acute blood loss anemia Acute Bioprosthetic mitral valve replacement, current hospitalization Acute S/P ablation of atrial fibrillation Acute Status post tricuspid valve repair Acute Atrial fibrillation Acute Persistent atrial fibrillation with rapid ventricular response Acute
--- NOTE | 2017-10-10 08:56 | CPEKG ---
Heart Rate: 83 RR Interval: 723 P-R Interval: 180 QRSD Interval: 96 QT Interval: 392 QTC Interval: 461 P [place]: 0 QRS [place]: 24 T Wave [place]: -57 EKG Severity - ABNORMAL ECG - EKG Impression: AFIB/AT with intermittent V pacing Electronically Signed By: Eduardo Bedoya 10-Oct-2017 09:19:16
[2017-10-10] MEDS: AMIODARONE HCL 200 MG TAB PO SCH (09:52)
[2017-10-10] MEDS: PANTOPRAZOLE SODIUM 40 MG TAB PO SCH (09:52)
[2017-10-10] MEDS: ATORVASTATIN CALCIUM 10 MG TAB PO SCH (09:52)
[2017-10-10] MEDS: CHOLECALCIFEROL VIT D3 1,000 UNITS TAB PO SCH (09:52)
[2017-10-10] MEDS: ENOXAPARIN 80 MG/0.8 ML SYR SC SCH (09:52)
[2017-10-10] MEDS: ASPIRIN 81 MG CHEWABLE TAB PO SCH (09:52)
[2017-10-10] MEDS ORDERED: POTASSIUM CL 20 MEQ TAB PO ONE (10:07)
[2017-10-10] MEDS: SODIUM CL NASAL 45 ML BTL EACHNARE SCH ×2 (10:48→23:20)
[2017-10-10] MEDS: TIMOLOL 0.5% 15 ML OPHT.BTL EACHEYE SCH (10:57)
[2017-10-10] MEDS: FUROSEMIDE 40 MG TAB PO SCH (10:58)
[2017-10-10] MEDS: INSULIN REGULAR HUMAN 100 UNIT/ML UNIT SC SCH (10:59)
--- NOTE | 2017-10-10 11:24 | PDCARPN ---
Cardiology Progress Note Chief Complaint: Patient reports fatigue, pain at pacemaker insertion site. Assessment/Plan: Assessment: 77-year-old male with history of persistent atrial fibrillation, CAD, diabetes, hyperlipidemia, hypertension, congestive heart failure, dilated cardiomyopathy, severe mitral her trace regurgitation , for secondary tricuspid insufficiency. Who underwent mitral valve replacement with tricuspid her of as angioplasty was an left-sided [place] Maze procedure on her 10/02/2017. Postoperatively persistent atrial fibrillation , underwent cardioversion on 10/09/2017, with post cardioversion rhythm with a very slow (less than 30 BPM) underlying atrial rhythm. Underwent ppm implantation ([place] device, RA, and RV lead implantation) yesterday by Dr. Bedoya. No apparent complications. Today, patient reporting feeling well well. Does reports some pain at ppm implantation site, denies of any chest pain or symptoms suggesting of ischemia. Appears to be euvolemic on examination. Device check by [employer] rep today showing functioning within normal limits. Chest x-ray done this morning showing no delay pneumothorax from ppm implantation, small left pleural effusion with associated atelectasis , stated right pleural effusion. Decreased pulmonary vascular congestion.. Patient has converted back into atrial fibrillation , but well rate controlled. Laboratories showing mildly elevated white count , but improvement. Anemic (hemoglobin 10.3 and hematocrit 30.4), but mostly unchanged from yesterday. Elevated CO2 at 32, and glucose at 1:38 a.m., rest normal electrolyte renal function. Plan: 1. Persistent atrial fibrillation: Patient has converted back into AFib , well rate control. Asymptomatic. Currently on amiodarone. Metoprolol on hold. This may be resumed when CT surgery improves. Spoke to Dr. Bedoya, who reports that he he may attempt to cardiovert patient again in 1 months time. Patient INR today is subtherapeutic at 1.20, has been placed on warfarin therapy. Per Dr. Bedoya , patient can be restarted on Lovenox for bridging this evening. 2. Postop bradycardia: Status post ppm implantation yesterday. 3. Severe mitral regurgitation: Status post tissue valve implantation. 4. Dilated cardiomyopathy with EF of 40%: Patient appears to be fairly euvolemic. No signs of fluid overload. Heart failure management per cardiothoracic team. 5. CAD: Patient denies of any chest pain or pressure. Patient has been resumed anti-platelet therapy of aspirin. 6. Hyperlipidemia: Patient has been resumed on atorvastatin. Have discussed today with patient post pacemaker implantation teaching. This including monitoring for signs of infection, activity restrictions, bathing precautions. I have scheduled him for a 1 week device and wound check. He is also scheduled for 1 month follow-up with Dr. Bedoya, at that time consideration for repeated cardioversion if needed. At this time, we will defer all cardiac medications to CT surgery at this time. We will sign off , but please feel free to call us for reconsultation. 10/10/17 11:21 Subjective: Patient reports sternal incision pain, but no symptoms suggesting of cardiac ischemia. Reports no significant shortness of breath. Denies of any palpitations. Reports no lightheadedness. Reviewed/Discussed With: multidisciplinary team (Katlin JACOBSON CT surgery), other (Dr Bedoya) Objective: Vital Signs (8 Hrs) Temp Pulse Resp BP Pulse Ox 10/10/17 07:11 36.8 C 82 15 108/65 93 Intake/Output (24 Hrs) 10/09/17 10/10/17 10/11/17 05:59 05:59 05:59 Intake Total 1240 0 Output Total 870 525 Balance 370 -525 Intake: Oral (ml) 1240 IV Intake (ml) 0 Output: Urine (ml) 870 525 Urinal 870 525 Other: Weight 97.3 kg 93.2 kg 93 kg Number of Stools Urinal 1 Result Diagrams: 10/10/17 06:20 10/10/17 06:20 - Physical Exam Constitutional: no apparent distress, other Ears, Nose, Mouth, Throat: moist mucous membranes Cardiovascular: no rubs, irregularly irregular (A-fib), pulses symmetric bilat, No jugular vein distention (Triple lumen catheter in right internal jugular.), No carotid bruit Peripheral Pulses: 1+: dorsalis-pedis (R), dorsalis-pedis (L), 2+: carotid (R), carotid (L) Respiratory: other (Diminished in bases bilateral, no rhonchi, rales, or wheezing noted.) Gastrointestinal: normoactive bowel sounds Skin: warm, no edema, other (Sternotomy incision CDI with no signs of infection. Ppm implantation left anterior chest just distal to clavicle, no redness, swelling, drainage, ecchymosis, or hematoma.) Neurologic: AAOx3 Psychiatric: cooperative, interactive, following commands, not anxious ICD10 Worksheet Patient Problems: Problems Problem Status Onset Acute blood loss anemia Acute Status post tricuspid valve repair Acute S/P ablation of atrial fibrillation Acute Bioprosthetic mitral valve replacement, current hospitalization Acute Atrial fibrillation Acute Persistent atrial fibrillation with rapid ventricular response Acute
[2017-10-10] MEDS ORDERED: WARFARIN SODIUM 2.5 MG TAB PO ONE (16:00)
[2017-10-10] MEDS: metFORMIN SR 500 MG TAB PO SCH (18:22)
[2017-10-11 06:49] LABS: INR 1.21 (0.83-1.16); PROTIME(PATIENT) 15.5 SEC (12.0-15.0)
--- NOTE | 2017-10-11 06:59 | SOAPPROG ---
SOAP Progress Note Assessment/Plan: POD#8 chordal sparing MVR with #29 Magna bioprosthesis, TVA with #30 MC3 ring, CoxMaze IV POD #2: A/V PPM implantation Severe MR - s/p tissue MVR. Antithrombotic prophylaxis with Coumadin, target INR 2-3, duration as per Maze surveillance. Secondary TR - s/p TVA. Antithrombotic prophylaxis as per MVR. Longstanding persistent Afib - s/p CM4. Continue Coumadin as per CM protocol. Post-op bradyarrhythmias - s/p A/V PPM implantation. Dilated cardiomyopathy with LVEF 40% and chronic sCHF - Continue daily Lasix. Acute expected blood loss anemia with mild coagulopathy - Stable s/p 2u PRBC. No evidence active bleeding. VTE prophylaxis with Lovenox/Coumadin/SCDs. DM2 - Well controlled by preop A1c of 5.7%. Continue Metformin. 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 No apparent postop ischemia. Secondary prevention with baby ASA, statin and BB as tolerated. Disposition - likely transfer to SNF today pending insurance approval. Lines - RIJ RLC to be removed today. Subjective: No complaints. Objective: Vital Signs Temp Pulse Resp BP Pulse Ox 37.0 C 82 16 117/67 94 10/11/17 05:59 10/11/17 05:59 10/11/17 05:59 10/11/17 05:59 10/11/17 05:59 Laboratory Results 10/10/17 06:20 10/10/17 06:20 10/10/17 10/11/17 10/12/17 05:59 05:59 05:59 Intake Total 0 1010 Output Total 525 700 Balance -525 310 PT 15.5 SEC (12.0-15.0) H 10/11/17 06:25 INR 1.21 (0.83-1.16) H 10/11/17 06:25 Physical Exam - Physical Exam General Appearance: WD/WN, alert, no apparent distress EENT: No scleral icterus (R), No scleral icterus (L) Neck: normal inspection Respiratory: No respiratory distress Cardiac/Chest: irregularly irregular, other (paced) Abdomen: non-tender, soft, No distended Skin: normal color, warm/dry Extremities: pedal edema (trace) Neuro/Psych: no motor/sensory deficits, alert, normal mood/affect, oriented x 3 ICD10 Worksheet Patient Problems: Problems Problem Status Onset Acute blood loss anemia Acute Bioprosthetic mitral valve replacement, current hospitalization Acute S/P ablation of atrial fibrillation Acute Status post tricuspid valve repair Acute Atrial fibrillation Acute Persistent atrial fibrillation with rapid ventricular response Acute
[2017-10-11] MEDS ORDERED: oxyCODONE IR 5 MG TAB PO PRN (08:31)
[2017-10-11] MEDS: ATORVASTATIN CALCIUM 10 MG TAB PO SCH (09:00)
[2017-10-11] MEDS: CHOLECALCIFEROL VIT D3 1,000 UNITS TAB PO SCH (09:00)
[2017-10-11] MEDS: FUROSEMIDE 40 MG TAB PO SCH (09:00)
[2017-10-11] MEDS: AMIODARONE HCL 200 MG TAB PO SCH (09:00)
[2017-10-11] MEDS: ASPIRIN 81 MG CHEWABLE TAB PO SCH (09:00)
[2017-10-11] MEDS: POTASSIUM CL 20 MEQ TAB PO SCH (09:00)
[2017-10-11] MEDS: PANTOPRAZOLE SODIUM 40 MG TAB PO SCH (09:00)
[2017-10-11] MEDS: SODIUM CL NASAL 45 ML BTL EACHNARE SCH ×2 (09:03→21:14)
[2017-10-11] MEDS: TIMOLOL 0.5% 15 ML OPHT.BTL EACHEYE SCH (09:03)
[2017-10-11] MEDS ORDERED: WARFARIN SODIUM 5 MG TAB PO ONE (16:00)
--- NOTE | 2017-10-11 16:09 | ASMTCMCOM ---
CM Note CM Note Notes: CM spoke w/ INDIRA Bradley regarding d/c POC. CM sent updates to [facility]. [employer] is still in the process of obtaining auth from [facility]. BILLY to follow. Plan: [facility] Date Signed: 10/11/2017 04:09 PM Electronically Signed By:JOVANNY Anglin
[2017-10-11] MEDS: SENNOSIDES/DOCUSATE SODIUM TAB PO PRN (16:31)
[2017-10-11] MEDS: metFORMIN SR 500 MG TAB PO SCH (17:55)
[2017-10-12 04:43] LABS: INR 1.23 (0.83-1.16); PROTIME(PATIENT) 15.7 SEC (12.0-15.0)
--- NOTE | 2017-10-12 07:01 | SOAPPROG ---
SOAP Progress Note Assessment/Plan: POD#9 chordal sparing MVR with #29 Magna bioprosthesis, TVA with #30 MC3 ring, CoxMaze IV POD #3: A/V PPM implantation Severe MR - s/p tissue MVR. Antithrombotic prophylaxis with Coumadin, target INR 2-3, duration as per Maze surveillance. Secondary TR - s/p TVA. Antithrombotic prophylaxis as per MVR. Longstanding persistent Afib - s/p CM4. Continue Coumadin as per CM protocol. Post-op bradyarrhythmias - s/p A/V PPM implantation. Dilated cardiomyopathy with LVEF 40% and chronic sCHF - Continue daily Lasix. Acute expected blood loss anemia with mild coagulopathy - Stable s/p 2u PRBC. No evidence active bleeding. VTE prophylaxis with Lovenox/Coumadin/SCDs. DM2 - Well controlled by preop A1c of 5.7%. Continue Metformin. 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 No apparent postop ischemia. Secondary prevention with baby ASA, statin and BB as tolerated. Disposition - transfer to [facility] pending insurance approval. Lines - PIV x1. Subjective: No complaints. Objective: Vital Signs Temp Pulse Resp BP Pulse Ox 36.8 C 92 18 102/50 L 92 10/12/17 04:00 10/12/17 04:00 10/12/17 04:00 10/12/17 04:00 10/12/17 04:00 Laboratory Results 10/10/17 06:20 10/10/17 06:20 10/11/17 10/12/17 10/13/17 05:59 05:59 05:59 Intake Total 1010 1300 Output Total 700 925 Balance 310 375 PT 15.7 SEC (12.0-15.0) H 10/12/17 03:15 INR 1.23 (0.83-1.16) H 10/12/17 03:15 Physical Exam - Physical Exam General Appearance: WD/WN, alert, no apparent distress EENT: No scleral icterus (R), No scleral icterus (L) Neck: normal inspection Respiratory: No respiratory distress Cardiac/Chest: regular rate, rhythm, irregularly irregular Abdomen: non-tender, soft, No distended Skin: normal color, warm/dry Extremities: pedal edema Neuro/Psych: no motor/sensory deficits, alert, normal mood/affect, oriented x 3 ICD10 Worksheet Patient Problems: Problems Problem Status Onset Acute blood loss anemia Acute Bioprosthetic mitral valve replacement, current hospitalization Acute S/P ablation of atrial fibrillation Acute Status post tricuspid valve repair Acute Atrial fibrillation Acute Persistent atrial fibrillation with rapid ventricular response Acute
[2017-10-12] MEDS: ASPIRIN 81 MG CHEWABLE TAB PO SCH (07:58)
[2017-10-12] MEDS: CHOLECALCIFEROL VIT D3 1,000 UNITS TAB PO SCH (07:58)
[2017-10-12] MEDS: POTASSIUM CL 20 MEQ TAB PO SCH ×2 (07:58→08:04)
[2017-10-12] MEDS: FUROSEMIDE 40 MG TAB PO SCH (07:58)
[2017-10-12] MEDS: PANTOPRAZOLE SODIUM 40 MG TAB PO SCH (07:58)
[2017-10-12] MEDS: AMIODARONE HCL 200 MG TAB PO SCH (07:58)
[2017-10-12] MEDS: ATORVASTATIN CALCIUM 10 MG TAB PO SCH (07:58)
[2017-10-12] MEDS: SODIUM CL NASAL 45 ML BTL EACHNARE SCH (08:02)
[2017-10-12] MEDS: TIMOLOL 0.5% 15 ML OPHT.BTL EACHEYE SCH (08:02)
[2017-10-12] MEDS: POTASSIUM CL 20 MEQ/15 ML UDCUP PO SCH (08:20)
[2017-10-12] MEDS ORDERED: WARFARIN SODIUM 5 MG TAB PO ONE (16:00)
--- NOTE | 2017-10-12 17:30 | ASMTCMCOM ---
CM Note CM Note Notes: Angeli from [facility] in to meet w/ the pt and today. Pt was denied auth from [employer] to go to [facility] for rehab. CM notified [facility] Espinosa to complete a peer to peer review. Peer to peer reviewed completed and [employer] still is denying pt auth for SNF. CM met w/ pt and informed him of the news. Pt is agreeable to HC. [facility] is requesting RN and PT for every day for 3 days then PT and RN 3x a week. Pt did not have a preference on HC as long as it is covered by insurance. Pt requested reasons why insurance denied him SNF. CM wrote the reasons why insuranced denied him per his request. CM to follow. Plan: HC; RN and PT for every day for 3 days then PT and RN 3x a week Date Signed: 10/12/2017 05:29 PM Electronically Signed By:JOVANNY Anglin
[2017-10-12] MEDS: metFORMIN SR 500 MG TAB PO SCH (17:38)
[2017-10-12] MEDS: SENNOSIDES/DOCUSATE SODIUM TAB PO PRN (20:18)
[2017-10-13 04:37] LABS: INR 1.23 (0.83-1.16); PROTIME(PATIENT) 15.7 SEC (12.0-15.0)
[2017-10-13] MEDS: ASPIRIN 81 MG CHEWABLE TAB PO SCH (08:06)
[2017-10-13] MEDS: AMIODARONE HCL 200 MG TAB PO SCH (08:06)
[2017-10-13] MEDS: TIMOLOL 0.5% 15 ML OPHT.BTL EACHEYE SCH (08:06)
[2017-10-13] MEDS: FUROSEMIDE 40 MG TAB PO SCH (08:06)
[2017-10-13] MEDS: CHOLECALCIFEROL VIT D3 1,000 UNITS TAB PO SCH (08:06)
[2017-10-13] MEDS: ATORVASTATIN CALCIUM 10 MG TAB PO SCH (08:06)
--- NOTE | 2017-10-13 09:36 | SOAPPROG ---
SOAP Progress Note Assessment/Plan: Assessment: POD#10 chordal sparing MVR#29 Magna bioprosthesis, TVA#30 MC3 ring, CoxMaze IV POD#4 SJM Assurity dual chamber pacemaker Severe MR - s/p tissue MVR. Antithrombotic prophylaxis with Coumadin, target INR 2-3, duration as per Maze surveillance. Secondary TR - s/p TVA. Antithrombotic prophylaxis as per MVR. Longstanding persistent Afib - Chronically anticoagulated with Xarelto for [id number] score of 5. Post Maze rhythm predominantly junctional or slow AF with intermittent AT. Started on low dose amio and electrically cardioverted. Very slow atrial rhythm revealed and PPM placed. Adjunctive BB as allowed by BP. Thromboprophylaxis switched to Coumadin. No lovenox bridge as SABRINA excluded. Dilated cardiomyopathy with LVEF 40% and chronic mixed CHF - Off CPB with milrinone and levo. Extubated without incident. No prolonged vasoactive support. Actively diuresing moderate fluid overload. Chest tubes out. Staggered intro of HF meds as appropriate. Acute expected blood loss anemia with mild coagulopathy - Stable s/p 2u PRBC. No evidence active bleeding. VTE prophylaxis with coumadin/SCDs. DM2 - Well controlled by preop A1c of 5.7%. Postop hyperglycemia managed with low dose insulin gtt. Transitioned to SSI and Metformin. No correctional needs and SSI suspended. 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 No apparent postop ischemia. Secondary prevention with baby ASA, statin and BB as allowed by BP. Plan: Inc Coumadin to 5 mg daily. Start metoprolol tartrate 12.5 mg BID w conservative hold parameter. Relax diuresis in am. Dispo - Home with [facility] vs SNF (SNF denied by insurance - appeal with updated PT notes submitted). 10/13/17 09:24 Subjective: Feels well. Upset by insurance denial. Is getting stronger but admits that positional changes from sitting to standing biggest challenge. Objective: Vital Signs Temp Pulse Resp BP Pulse Ox 36.7 C 89 12 98/59 L 96 10/13/17 07:41 10/13/17 07:41 10/13/17 07:41 10/13/17 07:41 10/13/17 07:41 Laboratory Results 10/10/17 06:20 01/17/18 06:20 10/12/17 10/13/17 10/14/17 05:59 05:59 05:59 Intake Total 1300 700 100 Output Total 925 450 Balance 375 250 100 PT 15.7 SEC (12.0-15.0) H 10/13/17 03:27 INR 1.23 (0.83-1.16) H 10/13/17 03:27 Intermittent AF or paced rhythm. SBPs generally more robust. Almost off O2. Balanced I/Os. Within 2 kg admit wt. INR yet to budge. Physical Exam - Physical Exam General Appearance: alert, no apparent distress Respiratory: lungs clear (grossly) Cardiac/Chest: regular rate, rhythm, other (Sternotomy and CT sites healing well.) Abdomen: non-tender, soft Skin: warm/dry Extremities: other (no visible edema) ICD10 Worksheet Patient Problems: Problems Problem Status Onset Acute blood loss anemia Acute Bioprosthetic mitral valve replacement, current hospitalization Acute S/P ablation of atrial fibrillation Acute Status post tricuspid valve repair Acute Atrial fibrillation Acute Persistent atrial fibrillation with rapid ventricular response Acute
[2017-10-13] MEDS: POTASSIUM CL 20 MEQ/15 ML UDCUP PO SCH (09:56)
[2017-10-13] MEDS ORDERED: WARFARIN SODIUM 7.5 MG TAB PO ONE (16:00)
[2017-10-13] MEDS: metFORMIN SR 500 MG TAB PO SCH (16:30)
[2017-10-13] MEDS: METOPROLOL TARTRATE 25 MG TAB PO SCH (22:45)
[2017-10-14 01:15] VITALS: RESP 16
[2017-10-14] MEDS: ATORVASTATIN CALCIUM 10 MG TAB PO SCH (07:35)
[2017-10-14] MEDS: METOPROLOL TARTRATE 25 MG TAB PO SCH (07:35)
[2017-10-14] MEDS: TIMOLOL 0.5% 15 ML OPHT.BTL EACHEYE SCH (07:35)
[2017-10-14] MEDS: AMIODARONE HCL 200 MG TAB PO SCH (07:35)
[2017-10-14] MEDS: CHOLECALCIFEROL VIT D3 1,000 UNITS TAB PO SCH (07:36)
[2017-10-14] MEDS: ASPIRIN 81 MG CHEWABLE TAB PO SCH (07:36)
[2017-10-14 07:41] LABS: INR 1.28 (0.83-1.16); PROTIME(PATIENT) 16.2 SEC (12.0-15.0)
[2017-10-14 07:53] VITALS: BP 108/64; PULSE 94; TEMP 98.1
--- NOTE | 2017-10-14 07:57 | SOAPPROG ---
SOAP Progress Note Assessment/Plan: Assessment: POD#11 chordal sparing MVR#29 Magna bioprosthesis, TVA#30 MC3 ring, CoxMaze IV POD#5 SJM Assurity dual chamber pacemaker Severe MR - s/p tissue MVR. Antithrombotic prophylaxis with Coumadin, target INR 2-3, duration as per Maze surveillance. Secondary TR - s/p TVA. Antithrombotic prophylaxis as per MVR. Longstanding persistent Afib - Chronically anticoagulated with Xarelto for [id number] score of 5. Post Maze rhythm predominantly junctional or slow AF with intermittent AT. Started on low dose amio and electrically cardioverted. Very slow atrial rhythm revealed and PPM placed. BB initiated yest. Thromboprophylaxis switched to Coumadin. No lovenox bridge as SABRINA excluded. Dilated cardiomyopathy with LVEF 40% and chronic mixed CHF - Off CPB with milrinone and levo. Extubated without incident. No prolonged vasoactive support. Actively diuresing moderate fluid overload. Chest tubes out. Staggered intro of HF meds as appropriate. Acute expected blood loss anemia with mild coagulopathy - Stable s/p 2u PRBC. No evidence active bleeding. VTE prophylaxis with coumadin/SCDs. DM2 - Well controlled by preop A1c of 5.7%. Postop hyperglycemia managed with low dose insulin gtt. Transitioned to SSI and Metformin. No correctional needs and SSI suspended. 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 No apparent postop ischemia. Secondary prevention with baby ASA, BB, and statin. Plan: Inc Coumadin to 7.5 mg daily. Cont metoprolol tartrate 12.5 mg BID. Decr lasix to 20 mg daily. Dispo - Home with [facility]. Instructions re diet, meds, activity, wound care and follow-up to be reviewed prior to discharge. 10/14/17 07:55 Subjective: In good spirits. Able to stand without assistance and eager for home. Objective: Vital Signs Temp Pulse Resp BP Pulse Ox 36.7 C 94 16 108/64 92 10/14/17 07:47 10/14/17 07:47 10/14/17 07:47 10/14/17 07:47 10/14/17 07:47 Laboratory Results 10/14/17 07:14 10/13/17 10/14/17 10/15/17 05:59 05:59 05:59 Intake Total 700 600 Output Total 450 300 Balance 250 300 PT 16.2 SEC (12.0-15.0) H 10/14/17 07:14 INR 1.28 (0.83-1.16) H 10/14/17 07:14 Predom Vpaced. No rapid AF. Almost off O2. Balanced I/Os. Now within 1 kg preop wt. Onset of contraction alkalosis. No sig rise in INR. Physical Exam - Physical Exam General Appearance: alert, no apparent distress Respiratory: lungs clear Cardiac/Chest: regular rate, rhythm, other (Sternum grossly stable. Sternotomy and CT sites healing well. PPM pocket soft and flat.) Abdomen: non-tender, soft Skin: warm/dry Extremities: swelling (1+ perimalleolar) ICD10 Worksheet Patient Problems: Problems Problem Status Onset Acute blood loss anemia Acute Bioprosthetic mitral valve replacement, current hospitalization Acute S/P ablation of atrial fibrillation Acute Status post tricuspid valve repair Acute Atrial fibrillation Acute Persistent atrial fibrillation with rapid ventricular response Acute
[2017-10-14 08:32] VITALS: O2SAT 85
--- NOTE | 2017-10-14 08:54 | PDHOMEO2F ---
Home Oxygen Face to Face Home Orders: I certify that a physician or a nurse practitioner or physician's event sales assistant has had a [id number] encounter with this patient on the date of this order due to the diagnosis listed, which relates to the primary reason the patient requires home oxygen. Alternative treatments have been tried, or considered, and deemed ineffective. It is anticipated that supplemental oxygen will result in improvement with treatment. Home oxygen qualifying diagnosis: dilated cardiomyopathy with chronic systolic and diastolic CHF Home oxygen secondary diagnosis: CAD SpO2 on room air (%): 85 Frequency of home oxygen needed: continuous Home oxygen liters per minute: 1 Home oxygen delivery device: nasal cannula Concentrator: Yes E-tanks for mobility and back up: Yes If ordering portable O2, is the patient mobile in the home?: Yes I certify that, based on these findings, the home oxygen is medically necessary for this patient for the following length of time. Length of time home oxygen needed: 99 years (indeterminate at this time)
[2017-10-14] MEDS ORDERED: FUROSEMIDE 20 MG TAB PO SCH (09:00)
[2017-10-14] MEDS ORDERED: POTASSIUM CL 20 MEQ/15 ML UDCUP PO SCH (09:00)
--- NOTE | 2017-10-14 09:15 | PDIAF ---
- Diagnosis Diagnosis: multivalv insuff, AFib s/p tissue AVR, TVA, Maze ablation; postop PPM Code Status: Full Code - Medication Management Discharge Medications: Medications to Continue on Transfer Atorvastatin Calcium [Lipitor 10 mg (*)] 10 mg PO DAILY18 05/19/16 [Last Taken 10/01/17 21:00] Timolol 0.5% [TIMOPTIC 0.5% (*)] 1 drops EACHEYE DAILY 05/19/16 [Last Taken 06/11] Cholecalciferol Vit D3 [Vitamin D3 (*)] 1,000 units PO DAILY 09/26/17 [Last Taken Unknown] Herbals/Supplements -Info Only 1 ea PO DAILY 09/26/17 [Last Taken Unknown] metFORMIN SR [Glucophage XR 500 mg (*)] 500 mg PO DAILY18 09/26/17 [Last Taken 09/29/17] oxyCODONE IR [Oxycodone Ir (*)] 5 mg PO DAILY PRN 09/26/17 [Last Taken 09/24/17] Acetaminophen [Tylenol 325mg (*)] 325 - 650 mg PO Q4HRS PRN tab 10/14/17 [Last Taken Unknown] Amiodarone HCl [Pacerone (*)] 200 mg PO DAILY #25 tab 10/14/17 [Last Taken Unknown] Aspirin [Aspirin 81mg (*)] 81 mg PO DAILY tab.chew 10/14/17 [Last Taken Unknown ] Furosemide [Lasix 20 MG (*)] 20 mg PO DAILY #30 tab 10/14/17 [Last Taken Unknown ] Metoprolol Tartrate [Lopressor 25 mg (*)] 12.5 mg PO BID #60 tab 10/14/17 [Last Taken Unknown] Potassium Chloride Po [Potassium Chloride 20 mg/15 ml (*)] 10 meq PO DAILY #30 udcup 10/14/17 [Last Taken Unknown] Warfarin Sodium [Coumadin 5MG (*)] 5 mg PO DAILY16 #90 tab 10/14/17 [Last Taken Unknown] traMADol [Ultram 50 mg (*)] 50 mg PO Q4-8PRN PRN #20 tab 10/14/17 [Last Taken Unknown] Discharge Medications: Refer to the Discharge Home Medication list for PRN reason. PICC Care - Routine: N/A - Orders Services needed: Home Care (assistance with ADLs), Registered Nurse ( cardiorespiratory and therapeutic drug monitoring, daily x 3 days then 3x weekly x 2 weeks), Physical Therapy (functional mobility, daily x 3, then 3x weekly x 2 weeks) Home Care Face to Face: I certify that this patient was under my care and that I had the required [id number] encounter meeting the encounter requirements on the discharge day. My findings support the fact that the patient is homebound as defined in Home Care Face to Face Continued: CMS Chapter 7 Medicare Benefits Manual 30.1.1 , The condition of the patient is such that there exists a normal inability to leave home and consequently, leaving home would require a considerable and taxing effort. Isolation Type: None Oxygen: 1 lpm continuously or as directed by SpO2; titrate to sat > 89% Diet Recommendation: no restrictions on diet, fluid restriction (use comment for amount) (1800 ml (60 oz) daily ) Diet Texture: Regular Texture Diet Weigh Patient: daily [place]: Not applicable Wound Care Instructions: daily soap and water. ok to leave open to air. avoid ointments or underwater immersion until scabs off Activity/Weight Bearing Restrictions: sternal precautions x 3 more weeks. avoid lifting > 10lbs with an outstretched arm. avoid push pull activities Additional: RN blood draw for INR and BMP on 10/16. Review FSBG. Accept glc < 160. Call [facility] ([facility]) for overnight weight gain > 2lbs, absolute weight gain > 5 lbs, progressive leg edema, resting HR > 120, SBP consistently < 90 or > 150, supplemental O2 req > 3 Lpm or any wound concerns. Call PCP for questions re FSBG results. - Labs/Radiology BMP Date: 10/16/17 (results to [facility]) PT/INR Date: 10/16/17 (results to [facility]) Imaging Orders: CXR prior to surgical appointment - Follow Up Care Current Providers and Referrals: TERRANCE SAUNDERS [Primary Care Provider] - Zenon Chen DO [Doctor of Osteopathy] - 10/23/17 10:30 am Eduardo Bedoya MD [Medical Doctor] - 11/20/17 4:00 pm (Follow up for device and wound check on 10/18/2017 1:00 PM [facility] [place] [facility] Follow up with Dr Bedoya on 11/20/2017 at 4:00 PM)
--- NOTE | 2017-10-14 11:55 | PDDCSUM ---
Discharge Summary Discharge Summary: DATE OF ADMISSION: 10/02/17 DATE OF DISCHARGE: 10/14/17 DISPOSITION: Discharged home with home health care, RN/PT/WEIGHT CLERK PRINCIPAL DISCHARGE DIAGNOSES: 1. Nonobstructive coronary artery disease 2. Nonobstructive carotid artery disease 3. Severe mitral regurgitation treated with mitral valve replacement with a bioprosthesis 4. Secondary tricuspid regurgitation treated with ring annuloplasty 5. Longstanding persistent atrial fibrillation treated with [place] Maze IV ablation procedure 6. Postoperative bradyarrhythmias requiring placement of a permanent pacemaker 7. Acute expected blood loss anemia FOLLOW UP APPOINTMENTS: 1. CV surgery: with Dr Chen at [facility] on 10/23 at 10:30 am. 2. Pacemaker clinic: at [facility] on 10/18 at 1:00 pm. 3. Cardiology: with Dr Bedoya at [facility] on 11/20 at 4:00 pm. FOLLOW UP TESTIN. INR and BMP on 10/16. Results to [facility]. 2. CXR prior to surgical appointment. ALLERGIES/SENSITIVITIES: NKDA DISCHARGE MEDICATIONS: see medical administration record for full details Essentially as on admission (Timolol 0.5% opht, Atorvastatin, Vit D3, Oxycodone IR, Metformin XR ) with the following adjustments: 1. Hold Xarelto while on Coumadin 2. Hold Metoprolol succinate NEW prescriptions: 1. ASA 81 mg daily until INR stable in therapeutic range. Hold for INR > 3. 2. Amiodarone 200 mg daily thru 11/09/17. 3. Metoprolol tartrate 12.5 mg BID. 4. Lasix 20 mg daily until back to baseline weight of 90 kg. 5. Klor-Con 10 meq daily with Lasix. 6. Coumadin 5 mg 1.5 tabs (7.5 mg) daily or as directed by INR. 7. Tramadol 50 mg q6h prn mild to moderate incisional discomfort. 8. Oxygen at 1 Lpm continuously or as directed by SpO2. CONSULTANTS: EP cardiology ([place]) PROCEDURES/IMAGIN/9 (Monica): Left and right heart catheterization with selective coronary angiography and left ventriculogram. Access right radial artery. Findings: 30% proximal LCX stenosis. BRANCH COORDINATOR of high lateral diagonal branch. LVEDP 17. LVEF 40% with severe MR. PCWP 20. CI 2.6. 10/02 Carotid US: bilateral calcific plaquing at the level of each carotid bulb, no hemodynamically significant stenosis, antegrade flow bilateral vertebrals. 10/03 ([facility]): Chordal sparing mitral valve replacement with a 29 mm [place] Magna bovine pericardial bioprosthesis. Tricuspid valve annuloplasty with a 30 mm MC3 ring. [place] Maze IV ablation procedure utilizing bipolar radiofrequency, cryothermy and an AtriClip. 10/09 ([place]): Electrical cardioversion under KAE guidance. 10/09 ([place]): Implantation of a dual chamber SJM Assurity permanent pacemaker. Pacing Mode DDDR. Lower rate 80 ppm. HISTORY OF PRESENT ILLNESS: 77 yo male with worsening exertional dyspnea attributed to increasing frequency of AF, progressive mitral and tricuspid insufficiency, and progressive PHTN, admitted in advance of scheduled cardiac surgery to complete risk stratification. Preop imaging negative for obstructive CAD or prohibitive neurologic risk. 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 Severe MR - s/p tissue MVR. Antithrombotic prophylaxis with Coumadin, target INR 2-3, duration as per Maze surveillance. 2. Secondary TR - s/p TVA. Antithrombotic prophylaxis as per MVR. 3. Longstanding persistent Afib - Chronically anticoagulated with Xarelto for [id number] score of 5. Post Maze rhythm predominantly junctional or slow AF with intermittent AT. Started on low dose amio and electrically cardioverted. Very slow atrial rhythm revealed and PPM placed. Low dose BB subsequently initiated. Thromboprophylaxis switched to Coumadin. No lovenox bridge as SABRINA excluded. 4. Dilated cardiomyopathy with LVSD and chronic mixed CHF - Off CPB with milrinone and levo. Extubated without incident. No prolonged vasoactive support. Moderate fluid overload actively diuresed. Insufficient BP for ARB. 5. Acute expected blood loss anemia with mild coagulopathy - Stable s/p 2u PRBC. 6. DM2 - Well controlled by preop A1c of 5.7%. Postop hyperglycemia managed with low dose insulin gtt. Transitioned to SSI and Metformin. No correctional needs and SSI suspended. 7. 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 No apparent postop ischemia. Secondary prevention with baby ASA, BB, and statin. CLINICAL DISCHARGE INFORMATION: Sternum grossly stable. Sternotomy CDI, + Dermabond. Pacemaker pocket soft, flat. HR 80s-90s, AF/Vpaced. SBP 110s-120s. SpO2 85% RA, correcting to > 91% on 1 Lpm O2. Wt 0.9 kg above admit wt of 90.7 kilos. Hgb 9.8, HCT 29.3, Plt 388, Na 140, K 4.1, Cr 1.0 Coumadin flowsheet: Date INR mg 10/10 1.20 2.5 10/11 1.21 5 10/12 1.23 5 10/13 1.23 7.5 10/14 1.28 7.5
--- NOTE | 2017-10-14 13:45 | ASDISCHSUM ---
Discharge Information Plan Status:Home with Home Health Medically Cleared to Leave:10/13/2017 Discharge Date:10/14/2017 12:15 PM D/C Disposition:[facility] Health Service [facility] D/C Disposition:[id number] Projected Discharge Date:10/13/2017 11:00 AM Transportation at D/C:Friend Discharge Delay Reason: Follow-Up Date:10/13/2017 11:00 AM Discharge Slot: Final Diagnosis:MVR, TVA Placement Information Referral Type:*Custodial/SNF Referral ID:[id number] Provider Name: Address 1: Phone Number: Address 2: Fax Number: City: Selection Factors: State: Referral Type:*Home Health Care Services Referral ID:[id number] Provider [facility] (formerly [facility]) [address] Address 2: City:[place] Selection Factors: State:[place] Patient Contact Information Contact Name:KAREN Relationship:Daughter Address: Work Phone: City: [facility] Phone: State/Zip Code: Email: Financial Information Financial Class:Medicare Advantage Plans Primary Plan Desc:[employer] MEDICARE ADV Primary Plan Number:[id number] Secondary Plan Desc: Secondary Plan Number: Assessment Information [facility] Initial CM Assessment Living Arrangements What is your living Answers: With Spouse arrangement? Who do you live with? Type Of Residence What kind of residence do Answers: House you live in? Discharge Plan Comments Coordination Status Comments Notes: Patient is a 77yo male who was admitted for an MV repir vs. replacement with Dr. Chen. OT/PT have been ordered as well as cardiac rehab. Awaiting therapies evals to determine d/c needs. CM will follow. Date Signed: 10/03/2017 12:57 PM Electronically Signed By:Kaylee Sheffield LCSW [facility] CM Progress Note CM Note CM Note Notes: OT is recommending SNF rehab for patient at d/c. PT has not eval'ed yet. CM will follow. Date Signed: 10/05/2017 12:49 PM Electronically Signed By:Kaylee Sheffield LCSW [facility] CM Progress Note CM Note CM Note Notes: PT/OT recommending SNF Rehab. Spoke to patient, who lives in [place]. He is interested in a facility close to home so friends can visit. [facility] is in [place] and contracts w/his ins. Sent a referral to [facility]. Date Signed: 10/08/2017 11:49 AM Electronically Signed By:Larissa Marie LCSW [facility] CM Progress Note CM Note CM Note Notes: CM spoke w/ INDIRA Bradley regarding d/c POC. CM sent updates to [facility]. [facility] is still in the process of obtaining auth from [facility]. CM to follow. Plan: [email or web address] Date Signed: 10/11/2017 04:09 PM Electronically Signed By:JOVANNY Anglin [facility] Progress Note CM Note CM Note Notes: Angeli from [facility] in to meet w/ the pt and today. Pt was denied auth from [employer] to go to [facility] for rehab. CM notified Od[facility] Espinosa to complete a peer to peer review. Peer to peer reviewed completed and [employer] still is denying pt auth for SNF. CM met w/ pt and informed him of the news. Pt is agreeable to HC. Odilia is requesting RN and PT for every day for 3 days then PT and RN 3x a week. Pt did not have a preference on HC as long as it is covered by insurance. Pt requested reasons why insurance denied him SNF. CM wrote the reasons why insuranced denied him per his request. CM to follow. Plan: HC; RN and PT for every day for 3 days then PT and RN 3x a week Date Signed: 10/12/2017 05:29 PM Electronically Signed By:JOVANNY Anglin Case Management Discharge Plan Note Case Management Discharge Discharge Order Complete? Answers: Yes Patient to Obtain Answers: Other Notes: via friends and family Medications Transportation Arranged Answers: Family/Friends Faxed Final Orders Answers: Yes Agency/Facility Transfer Answers: Yes Report Printed & Faxed to Receiving Agency Family Notified Answers: Yes Notes: per patient Discharge Comments Notes: 10/14/2017 Case Management Note Met with pt. IM signed. Pt has friend to transport home. [facility] to start cares tomorrow. Faxed final orders. Date Signed: 10/14/2017 09:32 AM Electronically Signed By:Tiarra Healy RN Intervention Information Intervention Type:*Incorrect Registration Date of Service:10/02/2017 01:36 PM Patient Type:Observation Staff Member:LORRIE Madrid, Karolina Hours: Discipline: Severity: Comment: Intervention Type:*IM-Signed Date of Service:10/14/2017 09:32 AM Patient Type:Inpatient Staff Member:LORRIE Healy Hillary Hours: Discipline: Severity: Comment:
== END 2017-10-14 12:15 | disposition home health service (06) | DRG 217 ==
LOC: FCATH 08:46 → OBSVTOIN 11:59 → F2W 11:59 → F2N 10-03 07:59 → F2W 10-08 17:42
PROVIDERS: ADMIT Thoracic Surgery (Cardiothoracic Vascular Surgery); ATTEND Thoracic Surgery (Cardiothoracic Vascular Surgery)
PROC: 4A023N8 Measurement of Cardiac Sampling and Pressure, Bilateral, Percutaneous Approach (ICD-10-PCS; 2017-10-02)
PROC: 02L70CK Occlusion of Left Atrial Appendage with Extraluminal Device, Open Approach (ICD-10-PCS; principal; 2017-10-03 07:15)
PROC: 02RG08Z Replacement of Mitral Valve with Zooplastic Tissue, Open Approach (ICD-10-PCS; principal; 2017-10-03 07:15)
PROC: 025 Heart and Great Vessels, Destruction (ICD-10-PCS; principal; 2017-10-03 07:15)
PROC: 02UJ0JZ Supplement Tricuspid Valve with Synthetic Substitute, Open Approach (ICD-10-PCS; principal; 2017-10-03 07:15)
PROC: 30233N1 Transfusion of Nonautologous Red Blood Cells into Peripheral Vein, Percutaneous Approach (ICD-10-PCS; 2017-10-03 07:15)
PROC: 5A2204Z Restoration of Cardiac Rhythm, Single (ICD-10-PCS; 2017-10-09)
PROC: B245ZZ4 Ultrasonography of Left Heart, Transesophageal (ICD-10-PCS; 2017-10-09)
PROC: 02H63JZ Insertion of Pacemaker Lead into Right Atrium, Percutaneous Approach (ICD-10-PCS; 2017-10-09)
PROC: 0JH606Z Insertion of Pacemaker, Dual Chamber into Chest Subcutaneous Tissue and Fascia, Open Approach (ICD-10-PCS; 2017-10-09)
PROC: 02HK3JZ Insertion of Pacemaker Lead into Right Ventricle, Percutaneous Approach (ICD-10-PCS; 2017-10-09)
DX: I08.1 Rheumatic disorders of both mitral and tricuspid valves (principal); I48.1 Persistent atrial fibrillation; I42.0 Dilated cardiomyopathy; D62 Acute posthemorrhagic anemia; I49.8 Other specified cardiac arrhythmias; I25.10 Atherosclerotic heart disease of native coronary artery without angina pectoris; I27.20 Pulmonary hypertension, unspecified; E11.65 Type 2 diabetes mellitus with hyperglycemia; I11.0 Hypertensive heart disease with heart failure; I50.9 Heart failure, unspecified; E78.5 Hyperlipidemia, unspecified; M47.9 Spondylosis, unspecified; M81.0 Age-related osteoporosis without current pathological fracture; Z79.84 Long term (current) use of oral hypoglycemic drugs; Z87.891 Personal history of nicotine dependence
CPT/HCPCS: 82947-QW; 86860-90; 86870-90; 86922-90; 97110-GP; 97116-GP; 97161-GP; 97166-GO; 97530-GO; 97530-GP; 97535-GO; 99001-90; C1785; C1898; G8978-GP-CK; G8979-GP-CJ; G8987-GO-CL; G8988-GO-CI; J0153; J0171; J0282; J0461; J0690; J1265; J1644; J1650; J1815; J1940; J2001; J2150; J2250; J2260; J2370; J2704; J2720; J2765; J2930; J3010; J7060; P9016; P9041; Q9967

== ENCOUNTER → 2017-10-23 | Outpatient (CLI) | payer OTHER | LOC: FIMAGING 09:15 | PROVIDERS: ATTEND Thoracic Surgery (Cardiothoracic Vascular Surgery) | DX: Z09 Encounter for follow-up examination after completed treatment for conditions other than malignant neoplasm (principal); J90 Pleural effusion, not elsewhere classified; Z95.2 Presence of prosthetic heart valve; Z86.79 Personal history of other diseases of the circulatory system ==